=== PATIENT | male | born 1955 | race Caucasian/White ===

== ENCOUNTER → 2017-10-27 03:18 | Outpatient (CLI) | payer OTHER, SELFPAY ==
[2017-10-27 08:03] LABS: Hemoglobin A1C 6.4 % (4.5-6.2)
[2017-10-27 08:17] LABS: Anion Gap 8.7 mmol/L (3-11); BUN 17 mg/dL (7-18); CO2 26.3 mmol/L (21.0-32.0); CREATININE 0.92 mg/dL (0.70-1.30); Calcium 9.2 mg/dL (8.5-10.1); Chloride 106 mmol/L (98-107); Cholesterol 161 mg/dL (50-200); Glucose 117 mg/dL (70-100); HDL Cholesterol 42 mg/dL (40-60); LDL CHOLESTEROL 107 mg/dL (<100); Potassium 4.6 mmol/L (3.5-5.1); Sodium 141 mmol/L (136-145); Triglyceride 87 mg/dL (30-150)
== END ==
PROVIDERS: PCP Emergency Medicine; Visit Provider Emergency Medicine
DX: E11.9 Type 2 diabetes mellitus without complications (principal)
CPT/HCPCS: 36415; 80048; 80061; 83721; 83036

== ENCOUNTER 2018-10-25 11:51 | Outpatient (CLI) | payer OTHER, SELFPAY ==
--- NOTE | 2018-10-25 13:00 | DI.RAD_ITS ---
SYMPTOM/DIAGNOSIS: CHRONIC NECK AND BACK PAIN, M54.2, CERVICALGIA, DORSALGIA, M54.9, G89.29 CERVICAL SPINE: There are small to moderate endplate osteophytes throughout. There is narrowing of the C 3-4 disc space. There are facet degenerative changes. There is no significant neural foraminal narrowing. The alignment appears normal. IMPRESSION: Degenerative changes greatest at C 3-4.
== END 2018-10-25 12:11 ==
PROVIDERS: PCP Emergency Medicine; Visit Provider Emergency Medicine
DX: M54.2 Cervicalgia (principal); M47.812 Spondylosis without myelopathy or radiculopathy, cervical region
CPT/HCPCS: 72050

== ENCOUNTER 2019-11-01 11:03 | Outpatient (CLI) | payer OTHER, SELFPAY ==
--- NOTE | 2019-11-01 10:00 | DI.RAD_ITS ---
EXAM: XR KNEE RT 2V AP,LAT CLINICAL HISTORY: PAIN. TECHNIQUE: 2D digital imaging was performed. COMPARISON: CR KNEES BILAT AP LATERALS from 02/18/2016 CR KNEES BILAT MERCHANT VIEW from 02/17/2017 FINDINGS: BONES: No acute fracture is present. No bony destructive lesion is seen. JOINTS: There is again seen a right total knee replacement. No lucencies are seen in or about the or thopedic hardware. There is a moderate joint effusion. SOFT TISSUE: Vascular calcifications are present. IMPRESSION: 1. Right TKR. 2. Moderate joint effusion. DATA REPOSITORY: RADIATION DOSE DELIVERED:
--- NOTE | 2019-11-01 10:05 | DI.RAD_ITS ---
EXAM: XR SACROILIAC JOINTS CLINICAL HISTORY: rt hip pain. TECHNIQUE: 2D digital imaging was performed. COMPARISON: No exams were available for comparison FINDINGS: The sacroiliac joints are intact. No ankylosis or erosions are seen. The bones are intact and michel lly mineralized. There are mild degenerative changes seen at the hips bilaterally. Degenerative ketan nges are seen in the lower lumbar spine. The soft tissues are unremarkable. IMPRESSION: Mild degenerative changes seen at the hips and lower lumbar spine. DATA REPOSITORY: RADIATION DOSE DELIVERED:
== END 2019-11-01 11:23 ==
PROVIDERS: PCP Emergency Medicine; Referring Provider Emergency Medicine; Visit Provider Orthopaedic Surgery
DX: M16.0 Bilateral primary osteoarthritis of hip (principal); M47.816 Spondylosis without myelopathy or radiculopathy, lumbar region; Z96.651 Presence of right artificial knee joint; M25.461 Effusion, right knee
CPT/HCPCS: 72202; 73560

== ENCOUNTER 2019-12-28 08:08 | Outpatient (CLI) | payer OTHER, SELFPAY ==
[2019-12-29 17:04] LABS: SARS-CoV-2 RNA Not Detected (NotDetected); SARS-CoV-2 RNA Source Nasal/Nares
== END 2019-12-28 08:28 ==
PROVIDERS: PCP Emergency Medicine; Visit Provider Orthopaedic Surgery
DX: Z11.59 Encounter for screening for other viral diseases (principal); Z01.818 Encounter for other preprocedural examination
CPT/HCPCS: U0003

== ENCOUNTER 2020-01-01 09:49 | Inpatient (IN) | payer OTHER, SELFPAY ==
[2020-01-01] VITALS (9 sets, daily range): BP systolic 123–152; BP diastolic 69–101; PULSE 57–84; RESP 14–21; TEMP 36–36.8; O2SAT 94–100
--- NOTE | 2020-01-01 | DI.RAD_ITS ---
EXAM: XR KNEE RT 2V AP,LAT CLINICAL HISTORY: check total knee components in RR. TECHNIQUE: 2D digital imaging was performed. COMPARISON: CR XR KNEE RT 2V AP,LAT from 11/01/2019 FINDINGS: BONES: There are stable post operative changes present. No fracture or dislocation. JOINTS: The joint spaces are well maintained. No joint effusion is present. SOFT TISSUE: Normal. IMPRESSION: Stable postoperative changes. DATA REPOSITORY: RADIATION DOSE DELIVERED:
[2020-01-01] MEDS: Lactated Ringers 1,000 ML 80 ML IV (10:55)
[2020-01-01] MEDS: ceFAZolin 2 GM/50 ML BAG IVPB ×3 (14:01→23:27)
--- NOTE | 2020-01-01 14:30 | SYNOVIUM_PTH ---
PATIENT: Ari Gtz LOC: U#:[id number] AGE/SX: 64/M ROOM: RE01/01/[address]: Sunday Diaz MD : 1955 BED: A DIS: 01/02/2020 SPEC #: [id number] RECD: 01/01/20 16:13 STATUS: SOUJhonny REQ #: [id number] BEHZAD: 01/01/20 14:[address]: Sunday Diaz DEPT: Surgical Specimen RECD BY: Gely Boo ENTERED: 01/01/20 16:13 SP TYPE: SYNOVIUM OTHR DR: Ari Sanchez, DO Mohit Galvez Tissues: 1 - SYNOVIUM/IAL Procedures: GROSS AND MICRO LEVEL 4 Comments: [id number]
[2020-01-01] MEDS: POTASSIUM CHLORIDE/0.9% NACL 1,000 ML 150 MEQ IV (18:43)
[2020-01-01] MEDS: Gabapentin 100 MG CAP PO (19:34)
[2020-01-01] MEDS: Docusate Sodium 100 MG CAP PO (19:34)
[2020-01-01] MEDS: Simvastatin 10 MG TAB PO (19:34)
[2020-01-01] MEDS: oxyCODONE-CR 10 MG TABCR PO (19:35)
[2020-01-01] MEDS: Ketorolac 30 MG/ML VIAL IVP (22:46)
[2020-01-02 03:26] VITALS: BP 132/78; PULSE 83; RESP 18; TEMP 37; O2SAT 96
[2020-01-02] MEDS: Ketorolac 30 MG/ML VIAL IVP ×2 (04:23→09:32)
[2020-01-02] MEDS: Normal Saline Flush 10 ML SYR IV ×2 (04:24→09:32)
[2020-01-02] MEDS: ceFAZolin 2 GM/50 ML BAG IVPB (06:08)
[2020-01-02] MEDS: POTASSIUM CHLORIDE/0.9% NACL 1,000 ML 60 MEQ IV (06:09)
[2020-01-02 07:22] VITALS: BP 131/84; PULSE 63; RESP 17; TEMP 37; O2SAT 94
[2020-01-02] MEDS: Gabapentin 100 MG CAP PO (08:07)
[2020-01-02] MEDS: Multivitamin w/Minerals TAB 1 TAB PO (08:07)
[2020-01-02] MEDS: Docusate Sodium 100 MG CAP PO (08:07)
[2020-01-02] MEDS: Pantoprazole 40 MG TABCR PO (08:07)
[2020-01-02] MEDS: oxyCODONE-CR 10 MG TABCR PO (08:08)
[2020-01-02] MEDS: Lisinopril 10 MG TAB 30 MG PO (08:08)
[2020-01-02] MEDS: Allopurinol 100 MG TAB PO (08:08)
--- NOTE | 2020-01-02 09:10 | PT.INIE ---
Date of service: 01/02/20 Time of Service: 09:10 PT Notes Visit Reasons: R KNEE Physical Therapy Inpatient Initial Evaluation Date: 01/02/2020 Referring Doctor: Sunday Diaz MD PT Orders: PT CONSULT: Status post Ortho surgery Precautions: Fall. Standard. WBAT on right LE. 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 02/13/13 LEFT Social History/Home Situation: Lives with in a private home with 4 steps to enter without rails. Independent with all aspects of ADLs prior to surgery. Equipment Owned/DME: Wooden bilateral axillary crutches Subjective: Denies pain. Just reports surgical pain of 1-2/10 even after ambulation activity. Denies headache, chest, and dizziness throughout session. Objective: General Observation: Greyson wraps on right LE. LE. Knee immobilizer on right LE. TEDS on left leg. Mental Status: Alert and oriented x4 Pain: 1?2/10 in the right knee with ambulation activity ROM: Right Upper Extremity: Shoulder Flexion WFL. Shoulder abduction WFL. Elbow flexion WFL. Wrist flexion WFL. Opening and closing of hand WFL. Left Upper Extremity: Shoulder Flexion WFL. Shoulder abduction WFL. Elbow flexion WFL. Wrist flexion WFL. Opening and closing of hand WFL. Right Lower Extremity: Hip flexion WFL. Hip abduction WFL. Knee flexion 30 to 90 degrees. Knee extension -30 degrees ankle dorsiflexion WFL. Ankle plantarflexion WFL. Left Lower Extremity: Hip flexion WFL. Hip abduction WFL. Knee flexion WFL. Ankle dorsiflexion WFL. Ankle plantarflexion WFL. Strength: Right Upper Extremity: Shoulder flexors 5/5. Shoulder abductors 5/5. Elbow flexors 5/5. Elbow extensors 5/5. [employer] strong. Left Upper Extremity: Shoulder flexors 5/5. Shoulder abductors 5/5. Elbow flexors 5/5. Elbow extensors 5/5. [employer] Maker strong. Right Lower Extremity: Hip flexors 5/5. Hip abductors 5/5. Knee flexors 3-/5. Knee extensors 3 - /5. Ankle dorsiflexors 5/5. Ankle plantarflexors 5/5. Left Lower Extremity:Hip flexors 5/5. Hip abductors 5/5. Knee flexors 5/5. Knee extensors 5/5. Ankle dorsiflexors 5/5. Ankle plantarflexors 5/5. Sensation: Intact as to pain and pressure on bilateral lower extremities. Bed Mobility/Transfers: Rolling independent Supine to sit independent Sit to supine independent Sit to stand supervision Stand to sit supervision Bed to chair supervision Chair to bed supervision Gait: Using the 4 wheeled walker tolerated 250 feet of level is ambulation requiring only supervision. Using the bilateral axillary crutches, 300 feet of level surface ambulation requiring only supervision. Completed up-and-down 6 x 4 inch steps and 4 x 6 inch steps using bilateral axillary crutches requiring standby assist only. Only reported surgical pain of 1?2/10 in the right knee. Balance: Static Sitting: Normal Dynamic Sitting: Normal Static Standing: Good Dynamic Standing: Fair Special Tests: Mobility Limitations Standardized Measure [facility] 6 clicks Basic Mobility Inpatient Short Form: Raw Score: 24 CMS Score: 0% deficit Informed Consent/Education: Patient instructed in purpose of PT consult and plan of care. Assessment: Demonstrates the need for the use of bilateral axillary crutches to maximize independence and and reduce fall risk at home. He may benefit from continued assessment by outpatient PT regarding right foot rehabilitation or evaluation for the need of a right foot orthosis to maximize safety of community ambulation. Patient presents with clinical signs and symptoms consistent with current/admitting diagnoses that have resulted to mobility limitations, gait instability, generalized weakness, and impairment of motor control as demonstrated by the following impairment level findings: 1. Decreased strength to right knee major muscle groups 2. Impaired sitting/standing balance 3. Limitation of joint range of motion in right knee Impairments are contributing to the following functional limitations: 1. Inability to safely ambulate without assistive device 2. Increase completion time for mobility ADL performance Patient is assessed as a moderate complexity based on the following: History: 64 [id number] with impairment level findings, functional limitations, and past medical history as indicated above Examination: Demonstrable impairment in strength, balance, and mobility level with underlying impairments and functional limitations as documented above Presentation: Stable Decision Makin moderate complexity Goals: N/A. PT eval and 1 treatment session only. Plan of Care/Treatment Plan: N/A. PT eval and 1 treatment session only. DISCHARGE RECOMMENDATIONS: Home when medically cleared by orthopedic surgeon. May resume outpatient PT services in order to assess need for continued right foot rehabilitation or assessment for the need for right foot orthosis for maximized gait performance in the community. TREATMENT CODE/TIME: 81341 x 25 minutes, 05156 x 10 minutes beginning at 9:10 AM. Thank you for the opportunity to participate in the care of this patient. Carolina Cabrera PT, DPT, CLT [facility] [place], [place]
[2020-01-02 11:30] VITALS: BP 112/73; PULSE 76; RESP 18; TEMP 37; O2SAT 95
[2020-01-02 11:43] VITALS: BP 114/75; PULSE 80; RESP 17; TEMP 36.7; O2SAT 93
--- NOTE | 2020-01-02 12:54 | PDOC.CMIN ---
- If Service Date Differs Date of service: 01/02/20 Time of Service: 12:55 Care Management Initial Assess REASON FOR HOSPITALIZATION:: R knee revision PAST MEDICAL HISTORY/PAST SURGICAL HISTORY:: Medical History. Carpal tunnel syndrome of right wrist. DJD (degenerative joint disease). hands. DJD (degenerative joint disease) of knee. Hyperlipidemia. mild. Hypertension. Hyperuricemia. rare gout. IBS (irritable bowel syndrome). Kidney stones. 1991. Obesity. Surgical History. Arthroplasty of knee. B/L. Colonoscopy - IV Sedation (09/17/15). Dr Rangel, tubular adenoma, repeat 5 yrs. Extraction of cataract. 02/06/14; RIGHT EYE. 02/13; LEFT EYE. Replacement of total knee joint (02/13/13). 05/1998 ? 02/13/13 LEFT PREVIOUS FUNCTIONAL STATUS/SOCIAL/FAMILY SUPPORTS:: Ari lives in [place] with his , Eloina. 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 He is independent at baseline. CURRENT FUNCTIONAL STATUS:: Ari was sitting up in his chair when CM met with him. He reported that he is feeling great, and was able to work well with PT today. He stated that he is waiting for the MD to discharge him home. He did not have any questions or concerns regarding his discharge plan. CM will continue to follow. ADVANCE DIRECTIVES:: None on file. Has patient been provided with info about the portal/API?: Yes Did the patient sign up for the portal?: No CODE STATUS:: Full Code INSURANCE COVERAGE / FINANCIAL ISSUES:: [facility]/ Health Plans CURRENT HOME/COMMUNITY SERVICES/EQUIPMENT:: No current services in the community. Ari has crutches, which PT has cleared him to use post surgically. PRIMARY CARE PHYSICIAN:: Ari Sanchez POTENTIAL DISCHARGE NEEDS:: Evaluations for further needs, follow up appointments. PATIENT/FAMILY EDUCATION NEEDS:: Review discharge instructions regarding activity levels and medications, discussion of self care needs including ask me three. ANTICIPATED BARRIERS TO DISCHARGE:: None identified at this time. TRANSPORTATION:: via private vehicle driven by family. PLAN:: Anticipate Ari will return home when medically cleared with no services. He will be driven home via private vehicle by his . He will follow up with Ortho and his discharge plan of care. CM will continue to follow.
--- NOTE | 2020-01-02 13:04 | W.PM.DS.N ---
Date of service: 01/02/20 Time of Service: 13:04 DS: Diagnosis Discharge Diagnosis (1) Aseptic loosening of prosthetic knee: Status: Acute Discharge Plan Disposition Patient Disposition: HOME Condition: Good Discharge Details Reason For Visit: Exchange failed polyethylene insert R total knee Admit Date/Time: 01/01/20 09:49 Admit Provider: Sunday Diaz Attending Provider: Sunday Diaz Primary Care Provider: Ari Sanchez Hospital Course Hospital Course: Patient was taken to the operating room on day of admission 01/01/2020. He received a femoral nerve block using Exparel. He then had a a general anesthetic. The right knee was explored and he in fact had a failed polyethylene insert. The femoral tibial and patellar components were not loose. The patient did have an extensive synovial reaction to the polyethylene debris. Complete synovectomy was performed and a new polyethylene insert 10 mm thick was locked solidly into the tibial tray. Patient was admitted for pain control overnight. On 01/02/20, the day after the surgery he was having minimal discomfort. He was fully independent with transfers and ambulation on crutches. Physical therapy thought he was safe for home discharge. I also felt he was ready for home discharge, having completed all acute care goals. Home Meds and New Rx's Prescriptions: New ibuprofen 800 mg tablet 800 mg PO TID Qty: 30 RF: 1 hydrocodone-acetaminophen 5-325 mg tablet 1 tab PO Q6H PRN (Reason: pain) Qty: 14 RF: 0 Discontinued meloxicam [Mobic] 15 mg tablet 15 mg PO QAM Qty: 30 RF: 3 ibuprofen [Motrin IB] 200 MG tablet 400 mg PO Q6H PRN RF: 0 clindamycin HCl 300 mg capsule 300 mg PO 2 tabs prn Qty: 10 RF: 1 No Action Cortisporin-TC 3.3-3-10-0.5 mg/mL drops,suspension 4 drp OT TID Qty: 10 RF: 1 allopurinol 100 mg tablet 100 mg PO DAILY Qty: 90 RF: 4 sildenafil [Viagra] 100 MG tablet 50 - 100 mg PO PRN MDD 100 Qty: 5 RF: 10 triamcinolone acetonide 15 GM cream 15 gm Topical BID Qty: 1 RF: 0 Shingrix (PF) 50 mcg/0.5 mL suspension for reconstitution 0.5 ml IM ONCE Qty: 1 RF: 1 lisinopril 30 mg tablet 30 mg PO DAILY Qty: 90 RF: 3 simvastatin 10 mg tablet 10 mg PO QPM Qty: 90 RF: 3 Discharge Instructions Additional Instructions: Crutches to walk. Continue use as long as you limp. May put as much weight on right leg as your discomfort allows. Elevate right leg when sitting. May discontinue knee immobilizer splint when you can lift your straight leg off the bed with the splint off. May remove outside dressing shower and get the bottom dressings wet on . Do not attempt to remove the bottom dressing, just let them fall off by itself. Walk every day is much as discomfort allows. Perform range of motion exercises to the right knee several times a day at home. Apply the Cryo/Cuff to your right knee 4 times a day for an hour each time to help decrease swelling. Follow-up with Dr. Diaz in 2 weeks. Take ibuprofen 800 milligrams p.o. 3 times a day as prescribed to help decrease swelling and inflammation. Take hydrocodone every 6 hours if needed, for breakthrough pain. Referrals: Sunday Diaz MD [ [facility] ST[facility]FF PHYSICIAN] - (f/u in 2 weeks) Activity:: Activity as Tolerated Equipment/Supplies:: No Equipment Needed Diet:: As Tolerated Discharge Orders Discharge Orders: Discharge Order (Routine); Ordered 01/02/20 Ordered By: Sunday Diaz DS: Summary Status at Discharge Functional status at discharge: uses cane/walker Overall status at discharge: patient is not back to baseline Mental Status: mental status grossly normal Speech and Movement: speech and movement normal Mood: congruent mood Affect: normal affect Exam Psych Mental Status: mental status grossly normal Speech and Movement: speech and movement normal Mood: congruent mood Affect: normal affect DS: Data Vitals/I&O Vitals and I&O: Vital Signs Temperature 36.7 C 01/02/20 11:43 Temperature Source Temporal Artery Scan 01/02/20 11:43 Pulse 80 01/02/20 11:43 Pulse Rhythm Regular 01/02/20 10:00 Respiratory Rate 17 01/02/20 11:43 Respiratory Effort Non-Labored 01/02/20 10:00 Respiratory Depth Normal 01/02/20 10:00 Respiratory Pattern Normal 01/02/20 10:00 Blood Pressure 114/75 01/02/20 11:43 Pulse Oximetry 93 01/02/20 11:43 Respiratory End-tidal CO2 31 01/01/20 16:43 Oxygen Delivery Method Room Air 01/02/20 11:43 Oxygen Flow Rate 0 01/02/20 11:43 Pain Level 7 01/02/20 11:43 Comment 01/01/20 17:16 Intake & Output 01/01/20 01/02/20 01/02/20 23:59 11:59 23:59 Intake Total 1062.5 / 1112.5 985 / 985 Output Total 800 / 800 300 / 300 Balance 262.5 / 312.5 685 / 685 Intake: IV 1062.5 / 1112.5 745 / 745 Oral 240 / 240 Output: Urine 800 / 800 300 / 300 Other: Urine Color Yellow Yellow Urine Appearance Clear Clear Urine Odor Normal None Stool Size Large Stool Characteristics Soft Formed Emesis Description None Voiding Methods Urinal Toilet Data Completed and Pending Labs on day of discharge: 01/01/20 Unknown Knee - Right Joint Anaerobic Culture - Pending Preliminary micro results at discharge 01/01/20 Unknown Surgical Culture - Preliminary Knee - Right Joint 01/01/20 Unknown Anaerobic Culture - Pending Knee - Right Joint [facility] Medical History Carpal tunnel syndrome of right wrist 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 02/13/13 LEFT Family History Mother No problems noted. Father Essential hypertension Heart disease CHF Sister Atrial fibrillation Neoplasm LYMPHOMA Son No problems noted. Daughter No problems noted. Social History Smoking/Tobacco Use Status: Never Smoking risk assessment performed?: Yes Drug use: Never Current gender identity: male
--- NOTE | 2020-01-02 13:49 | PDOC.CMDIS ---
- If Service Date Differs Date of service: 01/02/20 Time of Service: 13:49 LACE Index Scoring Tool - Questions: Length of Stay (in days): 2 Acuity (Admit via E.D.?): No Comorbidities: Diabetes w/o Complication E.D. Visits: 0 - Answers: Total Score: 3 Risk of Readmission: Low Risk Care Management Discharge Reason for Hospitalization: R knee revision Discharge Plan: Ari will return home with no additional services at this time. He will be driven home by his via private vehicle. He will follow up with Ortho and his discharge plan of care. He is happy to be going home. Patient/Family Education Needs: Review discharge instructions regarding activity levels and medications, discussion of self care needs including ask me three.
--- NOTE | 2020-01-04 10:53 | W.PM.OP ---
Date of service: 01/01/20 Time of Service: 13:53 Operative Note Operative Note DATE OF PROCEDURE: 01/01/20 POST-OP DIAGNOSIS: other Catastrophic failure of polyethylene insert. No loosening of the femoral, tibial, or patellar components was identified. Foreign body synovitis right knee PROCEDURE: Exchange of failed polyethylene insert right total knee. Complete synovectomy right knee. SURGEON: Sunday Diaz ASSISTING SURGEON: Nyla Bateman ANESTHESIA: spinal PATHOLOGY: other (Specimen of abnormal synovium) TOURNIQUET TIME: 140 COMPLICATIONS: None Patient was transported to: PACU Patient's condition: stable Implants: The failed polyethylene insert was determined to be 8 mm thick. It was replaced with a 10 mm thick posterior cruciate substituting polyethylene insert. Indications: This is a 64-year-old white male who had undergone a right total knee replacement in 1998 at [facility]. He had done well until approximately 2 years prior to admission. At that time patient began experiencing vague discomfort in the knee associated with swelling. The patient was noted at that time to have visible thinning of the medial side of the tibial insert of his right total knee. Over the last 6 months his discomfort has started to limit his activities. Swelling in his knee has not subsided. Aspiration of his knee failed to show any sign of sepsis. Serial x-rays showed what appeared to be catastrophic failure of the medial polyethylene insert. I could not see any obvious loosening of his total knee components however. Exchange of the polyethylene insert was advised to alleviate his symptoms. I also informed the patient that at the time of surgery if any component was felt to be loose then it would be revised. He agreed with my treatment plan. Findings: Extensive synovitis due to polyethylene debris. I found that the insert measured only 8 mm thickness, despite an op report from [facility] that said it was a 10 mm thick insert. Femoral-tibial and patella components were well fixed. Procedure Description: Patient taken the operating room on 01/01/2020, given a spinal anesthetic and placed supine operative table. Patient also had received a femoral nerve block with Exparel. Proximal tourniquet was applied to the right thigh and then the right lower extremity was prepped from toes to tourniquet and draped free in the usual sterile fashion. I incised the scar from his lateral parapatellar incision under proximal tourniquet control. Incision was carried down to the knee capsule. A lateral parapatellar capsular incision was made it was extended proximally in the midline of the quadriceps tendon. Patella was mobilized medially. Medial and lateral capsular release from the proximal tibia was performed until I could flex the knee and clearly see the components. The polyethylene insert was removed. There was a fracture of the mid medial edge of the insert and was thinning of the entire medial portion of the insert to within just a couple millimeters thickness. The tibial component was then evaluated. There was no gross motion seen. I then used a tamp and a mallet to gently tap the component and again there was no motion of the component. The femoral component was then evaluated in a similar fashion and was solidly fixed with no loosening. Finally the patella component was evaluated and was solidly fixed. There was extensive foreign body synovitis of his knee from the polyethylene debris. A complete synovectomy was performed removing all abnormal synovium and leaving just healthy tissue. A 10 mm PFC posterior cruciate substituting insert was then opened. It was compared to the failed insert that was retrieved. On direct visualization it was apparent that the failed insert was not 10 mm thick as reported in the op note from [facility]. It looked to be only 8 mm. The new 10 mm insert was then inserted into the tibial tray and locked into place with the impactor and a mallet. Range of motion was checked. The patient was able to come to full extension. No varus or valgus laxity was noted when stressing the knee from 0 to 90 degrees of flexion. The knee was irrigated Betadine and saline solution and a Betadine solution was left in the knee for 60 seconds before suctioning. Wound margins were infiltrated 0.5 some Marcaine with epinephrine solution. The knee was flexed over soft goods and closure was begun. The lateral capsular incision was approximated interrupted [id number] sutures of #1 Vicryl suture material. The quadriceps tendon split was repaired with interrupted [id number] sutures of #1 of oxygen of 0. Subcu was approximated interrupted 2-0 Vicryl sutures skin edges were approximated with a running septic and suture of 3-0 Monocryl supplemented with tissue glue. Incision was dressed with a Mepilex dressing then dressed with ABD pads wrapped with 6 inch Greyson bandages. Tourniquet was released at this point there was no breakthrough bleeding to the dressings. Knee immobilizer splint was placed on the right side to keep his knee is extension. Patient was discharged to recovery room in good condition. He experienced no intraoperative complications.
== END 2020-01-02 14:15 | disposition home or self-care (01) | DRG 489 ==
LOC: PDS 09:49 → MS 01-02 13:06
PROVIDERS: Admitting Provider Orthopaedic Surgery; PCP Emergency Medicine; Visit Provider Orthopaedic Surgery
PROC: 0SPC09Z Removal of Liner from Right Knee Joint, Open Approach (ICD-10-PCS; CPT 27487; principal; 2020-01-01 13:30)
DX: T84.032A Mechanical loosening of internal right knee prosthetic joint, initial encounter (principal); I10 Essential (primary) hypertension
CPT/HCPCS: 27486; 76942; 88305; 97162; 97530; NC; 73560; 87070; 87075; 87205; J0131; J0690; J1100; J1885; J2001; J2405; L1830

== ENCOUNTER 2020-10-30 01:52 | Outpatient (CLI) | payer MEDICARE, OTHER, SELFPAY ==
--- NOTE | 2020-10-30 06:45 | DI.US_ITS ---
Exam(s) US RENAL EXAM: US RENAL CLINICAL HISTORY: rt flank pain for 3 weeks,R10.9. TECHNIQUE: Bhandari scale, color and spectral Doppler were used. COMPARISON: No exams were available for comparison FINDINGS: Renal size in cm: Right: 13.5. Left: 13.2. Echogenicity: Normal. Hydronephrosis: No. Cyst or mass: 0.8 x 1.5 x 1.3 cm simple cyst. No follow-up is recommended. Nephrolithiasis: No. Other findings: None. Bladder:Normal. Ureteral jets: Right: Visualized and unremarkable. Left: Visualized and unremarkable. Prevoid vol:514 cc Postvoid vol:57 cc Prostate: 105 cc Renal color flow: Symmetric and within normal limits. IMPRESSION: 1. No evidence of nephrolithiasis or hydronephrosis. 2. Enlarged prostate gland. Moderate postvoid urinary bladder volume. DATA REPOSITORY:
== END 2020-10-30 02:12 ==
PROVIDERS: PCP Emergency Medicine; Visit Provider Family Medicine
DX: R10.9 Unspecified abdominal pain (principal); N40.0 Benign prostatic hyperplasia without lower urinary tract symptoms
CPT/HCPCS: 36415; 76770; 80053; 83036; 84550; 85025

== ENCOUNTER 2020-10-30 03:02 | Outpatient (CLI) | payer MEDICARE, OTHER, SELFPAY ==
[2020-10-30 08:22] LABS: Abs Immature Grans 0.02 10^3/uL (0.0-0.06); Absolute Basophil Count 0.05 10^3/uL (0.0-0.2); Absolute Eosinophil Count 0.18 10^3/uL (0.0-0.7); Absolute Lymphocyte Count 1.23 10^3/uL (1.2-3.4); Absolute Monocyte Count 0.58 10^3/uL (0.1-0.8); Absolute Neutrophil Count 6.53 10^3/uL (1.2-6.7); Basophils % 0.6; Eosinophils % 2.1; HCT 42.7 % (40.0-50.0); HGB 13.9 g/dL (13.5-17.5); Immature Grans % 0.2; Lymphocytes % 14.3; MCH 28.8 pg (27.0-33.0); MCHC 32.6 % (32.0-36.0); MCV 88.4 fL (80-95); MPV 10.4 fL (8.0-11.0); Monocytes % 6.8; Nucleated RBC 0 %; Platelet Count 227 10^3/uL (130-400); RBC 4.83 10^6/uL (4.36-5.78); WBC 8.59 10^3/uL (4.4-10.8)
[2020-10-30 08:46] LABS: Hemoglobin A1C 6.8 % (<5.7)
[2020-10-30 09:52] LABS: ALT 39 U/L (16-63); AST 18 U/L (15-37); Albumin 4.3 g/dL (3.4-5.0); Alkaline Phosphatase 70 U/L (46-116); BUN 18 mg/dL (7-18); Bilirubin, Total 0.6 mg/dL (0.2-1.0); CREATININE 0.9 mg/dL (0.70-1.30); Calcium 9.6 mg/dL (8.5-10.1); Chloride 105 mmol/L (98-107); Glucose 120 mg/dL (74-106); Potassium 4.1 mmol/L (3.5-5.1); Sodium 141 mmol/L (136-145); Total Protein 7.7 g/dL (6.4-8.2); Uric Acid 6.1 mg/dL (3.5-7.2)
== END 2020-10-30 03:03 | disposition home or self-care (01) ==
LOC: LBO 03:02
PROVIDERS: PCP Emergency Medicine; Visit Provider Family Medicine
DX: R10.9 Unspecified abdominal pain (principal); R73.9 Hyperglycemia, unspecified; M10.9 Gout, unspecified
CPT/HCPCS: 36415; 80053; 83036; 84550; 85025

== ENCOUNTER → 2021-07-01 12:17 | Outpatient (BNVA) | payer MEDICARE, OTHER, SELFPAY | PROVIDERS: PCP Family Medicine; Referring Provider Family Medicine; Visit Provider Nurse Practitioner Adult Health | DX: G56.01 Carpal tunnel syndrome, right upper limb (principal) | CPT/HCPCS: 95908; 99203; 99214 ==

== ENCOUNTER → 2021-08-01 08:34 | Outpatient (BNVA) | payer MEDICARE, OTHER, SELFPAY | PROVIDERS: PCP Family Medicine; Referring Provider Nurse Practitioner Adult Health; Visit Provider Student in an Organized Health Care Education/Training Program | DX: G56.00 Carpal tunnel syndrome, unspecified upper limb (principal) | CPT/HCPCS: 99212 ==

== ENCOUNTER 2021-08-05 01:58 | Outpatient (CLI) | payer MEDICARE, OTHER, SELFPAY ==
[2021-08-05 12:48] LABS: Hemoglobin A1C 6.7 % (<5.7)
[2021-08-05 13:02] LABS: Anion Gap 11.3 mmol/L (3-11); BUN 16 mg/dL (7-18); CO2 23.7 mmol/L (21.0-32.0); CREATININE 0.8 mg/dL (0.70-1.30); Calcium 8.9 mg/dL (8.5-10.1); Calculated LDL 97 mg/dL (<100); Chloride 105 mmol/L (98-107); Cholesterol 160 mg/dL (<200); Glucose 130 mg/dL (74-106); HDL Cholesterol 43 mg/dL (40-60); Potassium 4.1 mmol/L (3.5-5.1); Sodium 140 mmol/L (136-145); Triglyceride 101 mg/dL (<150)
[2021-08-05 13:15] LABS: COMMENT (LAB VIEW ONLY) 100.77 mg/dL
[2021-08-05 13:18] LABS: Microalb ug/mg Crea 303.5 ug/mg Cr
[2021-08-05 13:20] LABS: Uric Acid 6.6 mg/dL (3.5-7.2)
[2021-08-05 22:45] LABS: PSA, Screening 1.3 ng/mL (<=4.5)
== END 2021-08-05 01:59 | disposition home or self-care (01) ==
LOC: LOS 01:59
PROVIDERS: Emergency Medicine; PCP Family Medicine; Visit Provider Family Medicine
DX: D12.6 Benign neoplasm of colon, unspecified (principal); E11.9 Type 2 diabetes mellitus without complications; E78.5 Hyperlipidemia, unspecified; G56.00 Carpal tunnel syndrome, unspecified upper limb; I10 Essential (primary) hypertension; M10.9 Gout, unspecified; N40.0 Benign prostatic hyperplasia without lower urinary tract symptoms; Z12.5 Encounter for screening for malignant neoplasm of prostate; E66.9 Obesity, unspecified
CPT/HCPCS: 36415; 80048; 80061; 84153; 82043; 82570; 83036; 84550

== ENCOUNTER 2021-08-13 11:53 | Day surgery (SDC) | payer MEDICARE, OTHER, SELFPAY ==
[2021-08-13 12:22] VITALS: BP 160/102; PULSE 73; RESP 18; TEMP 36.7; O2SAT 98
--- NOTE | 2021-08-13 12:23 | W.ANESPRE ---
General Info Date of Service Date Performed: 08/13/21 Height: 5 ft 9 in Weight: 102.058 kg Body Mass Index (BMI): 33.2 Surgical Procedure: Operation Date: 08/13/21 14:10 Proposed Procedure Side Surgeon p Wrist ECTR Right Yuan Martínez MD Meds Allergies and Home Medications Allergies Allergy/AdvReac Type Severity Reaction Status Date / Time Penicillins Allergy Intermediate Hives Verified 08/13/21 12:21 Home Medication Medication Instructions Recorded sildenafil 100 mg tablet (Viagra) 50 - 100 mg PO PRN #5 tabs 10/30/16 ibuprofen 800 mg tablet 800 mg PO TID #30 tabs 01/02/20 allopurinol 100 mg tablet 100 mg PO DAILY #90 tab-caps 07/09/20 clindamycin HCl 300 mg capsule 600 mg PO ONCE PRN dental 07/31/20 prophylaxis #10 caps lisinopril 30 mg tablet 30 mg PO DAILY #90 tabs 03/27/21 simvastatin 10 mg tablet 10 mg PO QPM #90 tabs 03/27/21 acetaminophen 500 mg capsule 1,000 mg PO Q8H PRN PRN #30 caps 08/13/21 hydrocodone 5 mg-acetaminophen 325 1 tab PO Q6H PRN #5 tabs 08/13/21 mg tablet ibuprofen 600 mg tablet 600 mg PO TID #30 tabs 08/13/21 Current Visit Medications: Current Medications Generic Name Dose Route Start Last Admin Trade Name Freq PRN Reason Stop Dose Admin Ringer's Solution 1,000 mls @ 80 mls/hr 08/13/21 06:00 IV 09/11/21 23:59 INFUSION CHAPINCITO Cefazolin Sodium/Dextrose 2 gm in 50 mls @ 100 mls/hr 08/13/21 06:00 Ancef Duplex IVPB 08/13/21 16:00 PREOP CHAPINCITO IV Miscellaneous Supplies 1 each 08/13/21 06:00 Iv Access IV 09/11/21 23:59 DIRECTED CHAPINCITO Sodium Chloride 0 ml 08/13/21 06:00 Normal Saline Flush 10 Ml Syr IV 09/11/21 23:59 PRN PRN Sodium Chloride 0 ml 08/13/21 06:00 Normal Saline 10 Ml Vial IJ 09/11/21 23:59 DIRECTED PRN Sterile Water 0 ml 08/13/21 06:00 Water,Injection,Sterile 10 Ml Vial IJ 09/11/21 23:59 DIRECTED PRN PFS Active Problems Active Problems: Problem Status Onset Code 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, 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 Carpal tunnel syndrome G56.00 Essential hypertension 05/04/13 I10 Generalized osteoarthrosis M15.9 Gout M10.9 Hyperlipidemia E78.5 Kidney stone N20.0 Left sided sciatica 10/20/16 M54.32 Tubular adenoma of colon 10/20/16 D12.6 Gout M10.9 Obesity E66.9 Hypertension I10 Medical History Medical History Carpal tunnel syndrome of right wrist DJD (degenerative joint disease) hands DJD (degenerative joint disease) of knee Hyperlipidemia mild Hypertension Hyperuricemia rare gout IBS (irritable bowel syndrome) Kidney stones 1991 Obesity Surgical History Surgical History Arthroplasty of knee B/L Colonoscopy - IV Sedation (09/17/15) Dr Rangel, tubular adenoma, repeat 5 yrs Extraction of cataract 02/06/14; RIGHT EYE 02/13; LEFT EYE Replacement of total knee joint (02/13/13) 05/1998 ? 02/13/13 LEFT Tobacco Smoking/Tobacco Use Status: Never Alcohol Alcohol Intake: current Alcohol intake frequency: a few times a week Substance Use Substance use: Never Substance use type: does not use Vital Signs and Lab Results Vital Signs Most Recent Vital Signs in EMR: Temp Pulse Resp BP Pulse Ox 36.7 C 73 18 160/102 H 98 08/13/21 12:22 08/13/21 12:22 08/13/21 12:22 08/13/21 12:22 08/13/21 12:22 Lab Results Blood Type / Crossmatch: No Data to Display Complete Blood Count: No Data to Display Complete Metabolic Panel: Sodium Level 140 mmol/L (136-145) 08/05/21 08:20 Potassium Level 4.1 mmol/L (3.5-5.1) 08/05/21 08:20 Chloride Level 105 mmol/L (98-107) 08/05/21 08:20 Carbon Dioxide Level 23.7 mmol/L (21.0-32.0) 08/05/21 08:20 Blood Urea Nitrogen 16 mg/dL (7-18) 08/05/21 08:20 Creatinine 0.8 mg/dL (0.70-1.30) 08/05/21 08:20 Estimated GFR/1.73 m2 >= 60.00 (mL/min/1.73m2) 08/05/21 08:20 Calcium Level 8.9 mg/dL (8.5-10.1) 08/05/21 08:20 Glucose Level 130 mg/dL (74-106) H 08/05/21 08:20 Hemoglobin A1c 6.7 % (<5.7) H 08/05/21 08:20 Liver Function Panel: No Data to Display Coagulation Panel: No Data to Display Cardiac Panel: No Data to Display Arterial Blood Gas: No Data to Display Venous Blood Gas: No Data to Display Pancreas Panel: No Data to Display Thyroid Panel: No Data to Display Infectious Disease: No Data to Display Blood Cultures: No Data to Display Toxicology Panel: No Data to Display Anesthesia Assessment and Plan Anesthesia History Personal History: No History of Anesthesia Complications Family History: No Family History of Anesthesia Complications Exercise Tolerance Exercise Tolerance: Metabolic Equivalents>4 Pertinent Negatives Pertinent Negatives: No Symptoms of GERD Cardiac & Pulmonary Exam Cardiac Exam: Normal S1/S2 Heart Sounds Pulmonary Exam: Clear Bilateral Breath Sounds Implantable Cardiac Device Does patient have a Pacemaker or an ICD?: No Airway Exam Known Difficult Airway: No Mallampati Class: 2 Mouth Opening: Normal (> 3cm) Thyromental Distance: Greater than 3 cm Neck Range of Motion: Full ROM Neck Circumference: Normal Teeth Condition: Normal Dentition ASA Classification ASA Score: ASA 2 Emergency Case?: No NPO Status NPO Status: NPO Clears >2 hours, Solids >8 hours Anesthesia Plan Resuscitation Status: Full Code Anesthesia Technique: General Anesthesia Airway Planned: Natural Airway Monitors Used: Standard Monitors
[2021-08-13] MEDS: Lactated Ringers 1,000 ML 80 ML IV (12:31)
[2021-08-13 12:32] VITALS: BMI 33.2
--- NOTE | 2021-08-13 12:35 | W.PM.DSUDISC ---
Discharge Plan Disposition Patient Disposition: HOME Condition: Stable Discharge Details Reason For Visit: Right ECTR Attending Provider: Yuan Martínez Primary Care Provider: Brody Camara Home Meds and New Rx's Prescriptions: New acetaminophen 500 mg capsule 1,000 mg PO Q8H PRN PRNQty: 30 0RF hydrocodone-acetaminophen 5-325 mg tablet 1 tab PO Q6H PRNQty: 5 0RF ibuprofen 600 mg tablet 600 mg PO TID Qty: 30 0RF Continued sildenafil [Viagra] 100 MG tablet 50 - 100 mg PO PRN MDD 100 Qty: 5 allopurinol 100 mg tablet 100 mg PO DAILY Qty: 90 4RF clindamycin HCl 300 mg capsule 600 mg PO ONCE PRN (Reason: dental prophylaxis) Qty: 10 1RF Rx Instructions: take 2 tabs one hour prior to dental work simvastatin 10 mg tablet 10 mg PO QPM Qty: 90 3RF lisinopril 30 mg tablet 30 mg PO DAILY Qty: 90 3RF ibuprofen 800 mg tablet 800 mg PO TID Qty: 30 1RF Discharge Instructions Stand Alone Forms: Mauricio Aguilar Tunnel Release Referrals: Yuan Martínez MD [ [facility] STAFF PHYSICIAN] - Activity:: Activity as Tolerated Remove Dressings/Wound Care:: 72 hours Shower/Bathe:: 72 hours Diet:: As Tolerated Discharge Orders Discharge Orders: Discharge Order (Routine); Ordered 08/13/21 Ordered By: Nyla Bateman DS: Diagnosis Discharge Diagnosis (1) Carpal tunnel syndrome of right wrist:
[2021-08-13] MEDS: ceFAZolin 2 GM/50 ML BAG IVPB (12:40)
[2021-08-13] MEDS: Lidocaine 1% Multi-Dose W/EPI 1/100,000 50 ML VIAL (12:52)
[2021-08-13] MEDS: Sodium Bicarbonate 50 MEQ/50 ML VIAL (12:52)
[2021-08-13 12:58] VITALS: BP 129/87; PULSE 95; RESP 18; TEMP 36.4; O2SAT 93
--- NOTE | 2021-08-13 13:14 | W.ANESPOSTOP ---
Postoperative Evaluation Date, Time and Location Date Performed: 08/13/21 Time Performed: 13:15 Patient Location: Day Surgery Unit Vital Signs Most Recent Imported Vital Signs: Most Recent Vital Signs Temp Pulse Resp BP Pulse Ox 36.4 C L 95 H 18 129/87 93 08/13/21 12:58 08/13/21 12:58 08/13/21 12:58 08/13/21 12:58 08/13/21 12:58 Pain Score Most Recent Pain Score: Most Recent Pain Score Pain Level 0 08/13/21 12:22 Assessment Mental Status: Awake (Alert & Oriented to Patient Baseline) Airway and Respiratory Function: Patent airway with normal (patient baseline) respiratory exam Cardiovascular Function: Hemodynamically Stable Hydration Status: Adequately Hydrated Nausea & Vomiting: No Nausea or Vomiting Pain: Pt. Denies Any Pain Peripheral Nerve Block: Patient did not receive a nerve block
--- NOTE | 2021-08-13 13:26 | W.PM.OP ---
Date of service: 08/13/21 Time of Service: 13:05 Operative Note Operative Note DATE OF PROCEDURE: 08/13/21 PRE-OP DIAGNOSIS: Left Carpal Tunnel Syndrome POST-OP DIAGNOSIS: same PROCEDURE: Left Endoscopic Carpal Tunnel Release SURGEON: Yuan Martínez ANESTHESIA TYPE: General:No Airway Refer to Anesthesia Record ESTIMATED BLOOD LOSS: 0 PATHOLOGY: none sent TOURNIQUET TIME: 5 COMPLICATIONS: None Patient was transported to: same day Patient's condition: stable Indications: I have seen Ari in clinic for symptoms of carpal tunnel syndrome. The numbness, tingling, and pain limited function. Clinical exam findings with nerve conduction tests confirmed the diagnosis of carpal tunnel syndrome. Nonoperative measures such as bracing, time, activity modifications had been tried but disability and pain persisted. I discussed carpal tunnel release with the patient. I reviewed the risks of the procedure to include, but not limited to, bleeding, infection, pain, stiffness, incomplete release, damage to nerves or vessels, persistent numbness, recurrence. Despite these risks, the patient elected to proceed. Findings: There was tightened carpal tunnel. This was dilated and released successfully with the endoscopic with increased space within the tunnel. The antebrachial fascia was released proximally freeing the median nerve at the wrist. Procedure Description: Ari was greeted in the preoperative holding area where the correct side was identified and marked. The consent was reviewed with the patient and signed. The history and physical was updated. All questions were answered. He was taken back to the operating room. The patient was placed into the supine position on the operating room table with the left arm on an arm board. A nonsterile tourniquet was placed high onto the arm. All bony prominences were well padded. Prophylactic antibiotics in the form of Cefazolin were administered. The left arm was then prepped with Chloraprep and draped in a standard fashion with stockinette and extremity drape. A timeout to confirm correct identity, side and site, procedure, allergies, anesthesia, and medical concerns was performed. The surgical site was marked in the volar wrist creases in line with the radial border of the fourth ray. This area was anesthetized with approximately 6cc of 1% Lidocaine. The limb was then exsanguinated with an Esmarch. The skin was incised with a 15 blade, approximately 1cm. The skin only was cut and the deeper tissue was dissected bluntly with a tenotomy scissor, avoiding passing nerve and venous structures. The fascia was penetrated and opened bluntly. A two-prong skin hook was placed under this proximal fascial edge. A series of hamate finders were used to identify and dilate the carpal tunnel. Synovial elevator was used to free synovial attachments to the underside of the transverse carpal ligament. My thumb was kept in the palm to shante the distal extent of the carpal tunnel and correctly position the hand. The Microaire endoscope was inserted without difficulty and without resistance. Excellent visualization showed horizontally running fibers of the transverse carpal ligament (TCL). The distal extent of the TCL was visualized and the end of the scope palpated with the thumb. The blade was elevated and withdrawn from distal to proximal. The TCL was split into two flaps. The endoscope was reinserted to confirm complete release and any remnant ligament was incised. The scope was withdrawn and the proximal aspect of the carpal tunnel was grossly inspected and appeared release with the median nerve visible. The antebrachial fascia at the level of the wrist was then freed from the overlying skin and then the underlying median nerve with blunt dissection. This was transected longitudinally for about 3cm proximal to the wrist incision. The wound was then irrigated with easy flow of irrigant distally and proximally. The incision was closed with a single 4-0 Nylon suture. The wound was dressed with Xeroform, Gauze, Kerlix and Greyson. The tourniquet was deflated with the initial dressing and held with some pressure. Blood flow returned easily to all digits with capillary refill less than 2 seconds. The patient tolerated the procedure well and was returned to the Same Day Surgery area in a stable condition suffering no known complication.
[2021-08-13 13:29] VITALS: BP 131/96; PULSE 77; RESP 19; TEMP 36.6; O2SAT 98
== END 2021-08-13 13:47 | disposition home or self-care (01) ==
PROVIDERS: PCP Family Medicine; Visit Provider Student in an Organized Health Care Education/Training Program
PROC: 01N54ZZ Release Median Nerve, Percutaneous Endoscopic Approach (ICD-10-PCS; CPT 29848; principal; 2021-08-13 14:00)
DX: G56.01 Carpal tunnel syndrome, right upper limb (principal); E78.5 Hyperlipidemia, unspecified; I10 Essential (primary) hypertension; E11.21 Type 2 diabetes mellitus with diabetic nephropathy
CPT/HCPCS: 29848; J0690; J1885; J2405

== ENCOUNTER → 2021-08-21 07:59 | Outpatient (BNVA) | payer MEDICARE, OTHER, SELFPAY | PROVIDERS: PCP Family Medicine; Referring Provider Family Medicine; Visit Provider Physician Assistant Surgical | DX: G56.01 Carpal tunnel syndrome, right upper limb (principal) ==

== ENCOUNTER → 2021-12-18 09:18 | Outpatient (BNVA) | payer MEDICARE, OTHER, SELFPAY | PROVIDERS: PCP Family Medicine; Referring Provider Family Medicine; Visit Provider Surgery | DX: Z12.11 Encounter for screening for malignant neoplasm of colon (principal); D12.6 Benign neoplasm of colon, unspecified; E11.21 Type 2 diabetes mellitus with diabetic nephropathy; I10 Essential (primary) hypertension; E66.9 Obesity, unspecified | CPT/HCPCS: 99242 ==

== ENCOUNTER 2021-12-30 07:52 | Day surgery (SDC) | payer MEDICARE, OTHER, SELFPAY ==
--- NOTE | 2021-12-30 06:40 | COLE_ITS ---
Date of service: 12/30/21 Colonoscopy Report Date of procedure: 12/30/21 Pre-op diagnosis general: Colon Cancer Screening/ Hx of polyps Procedure: 1.Colonoscopy Surgeon: Terese Rangel Anesthesia Type: General:No Airway Complications: None Disposition: same day Indications: Pt seen at the request of PCP regarding colon cancer screening. Pt has? had a colon cancer screening before.? His last colonoscopy was in 2016 and he had a tubular adenoma of the rectum.? See above. ? No pain or difficulty with bowel movements.? Denies rectal bleeding.? There is no family history of any colon cancer.? Pt has? had any weight loss (he is trying).? ? Their appetite is good.? No heart, lung, or kidney problems. No heartburn or indigestion. No prior colo- rectal surgery.? No prior prostate. ? No problems with anesthesia in the past. Prep: Miralax/Dulcolax Procedure Description: After informed consent was obtained the patient was taken to the procedure room and placed in a left decubitous position. Monitors were applied and a time out was done. The patients name, date of , procedure, allergies to medications and metal in their body was reviewed. The patient was then sedated. Once sedated and comfortable a rectal exam was done. External exam was normal. Internal exam revealed a normal sphincter tone and no palpable masses. The prostate []. The scope was then introduced and retro-flexed. [] internal hemorrhoids, polyps or masses were identified on retro-flexion. The scope was then advanced to the cecum [] difficulty. The ileocecal vlave and appendiceal orifice were identified. The prep was []. The scope was then slowly retracted over [] minutes back into the rectum. Polyps were removed at []. There was [] diverticulosis noted. The scope was removed and the patient was woken up and taken back to Same day surgery in stable condition. The patient tolerated the procedure well and there were no immediate complications. Follow up: The patient should follow up in [] years unless they develop changes in bowel habits or other new gastrointestinal complaints.
--- NOTE | 2021-12-30 06:42 | W.PM.DSUDISC ---
Date of service: 12/30/21 Discharge Plan Disposition Patient Disposition: HOME Condition: Good Discharge Details Reason For Visit: colonoscopy Attending Provider: Terese Rangel Primary Care Provider: Johnathon Rasmussen Home Meds and New Rx's Prescriptions: No Action sildenafil [Viagra] 100 mg tablet 50 - 100 mg PO PRN MDD 100 Qty: 5 1RF metformin 500 mg tablet 500 mg PO BID Qty: 180 3RF polyethylene glycol 3350 17 gram/dose powder 238 g PO ONCE Qty: 238 0RF Rx Instructions: take per colonoscopy instructions bisacodyl [Dulcolax (bisacodyl)] 5 mg tablet,delayed release (DR/EC) 5 mg PO ONCE Qty: 4 0RF Rx Instructions: take per colonoscopy instructions clindamycin HCl 300 mg capsule 600 mg PO ONCE PRN (Reason: dental prophylaxis) Qty: 10 1RF Rx Instructions: take 2 tabs one hour prior to dental work simvastatin 10 mg tablet 10 mg PO QPM Qty: 90 3RF lisinopril 30 mg tablet 30 mg PO DAILY Qty: 90 3RF acetaminophen 500 mg capsule 1,000 mg PO Q8H PRN PRNQty: 30 0RF ibuprofen 600 mg tablet 600 mg PO TID Qty: 30 0RF Discharge Instructions Additional Instructions: Findings: Follow up: Please call if you develop: fevers >101.5 Nausea or Vomiting Abdominal pain that is not transient Rectal bleeding that is more then a tbsp A hard abdomen and inability to pass gas DAY SURGERY UNIT POST ENDOSCOPY INSTRUCTIONS Instructions for everyone who is given Anesthesia: For your safety, please do the following for the next 24 Hours: a. Do not drive or operate dangerous equipment b. Do not drink alcohol beverages or use any recreational drugs for the first 24 hours or while taking pain medications. The medications in your body may have a reaction that can be dangerous. c. Do not make any important decisions or sign any important papers 1. Generally there are no restrictions on your activity after a day or so has gone by, but you may feel a bit fatigued for a few days. 2. After you arrive home you may have a light meal and return to a normal diet as you can tolerate it without feeling sick to your stomach. 3. After surgery, you may feel pain or discomfort. This should be only transient, but if it persists please contact your doctor. 4. If there are any questions regarding the findings of your procedure, please feel free to contact your doctor. 6. If you are unable to contact your doctor with a problem, contact the hospital at [phone]. 7. Continue all your regular medications unless directed otherwise. I understand the above instructions and have no questions. Signature of Patient or Responsible Adult Escort Date/Time Name of Responsible Adult Escort Signature of Nurse Date/Time Activity:: Activity as Tolerated Diet:: As Tolerated
[2021-12-30 08:28] VITALS: BP 112/82; PULSE 93; RESP 18; TEMP 36.2; O2SAT 97
--- NOTE | 2021-12-30 08:30 | RT.EKG_ITS ---
APPROVED REPORT Exam: Resting ECG Reason for Exam: Preoperative Evaluation, Irregular Heartbeat Patient Location: O HR:95 bpm ECG Measurements Heart Rate 95 AXIS DE [id number] P [id number] QRSd 78 QRS 6 QT 360 T 147 QTc 453 Conclusion Atrial fibrillation...? atrial activity Poor R wave progression Nondiagnostic ST-T abnormalities
[2021-12-30] MEDS: Lactated Ringers 1,000 ML 80 ML IV (08:45)
--- NOTE | 2021-12-30 08:53 | W.ANESPRE ---
General Info Date of Service Date Performed: 12/30/21 Height: 5 ft 8 in Weight: 101.3 kg Body Mass Index (BMI): 33.9 Surgical Procedure: Operation Date: 12/30/21 09:05 Proposed Procedure Side Surgeon p Colonoscopy Terese Rangel MD Meds Allergies and Home Medications Allergies Allergy/AdvReac Type Severity Reaction Status Date / Time Penicillins Allergy Intermediate Hives Verified 12/29/21 10:35 Home Medication Medication Instructions Recorded clindamycin HCl 300 mg capsule 600 mg PO ONCE PRN dental 07/31/20 prophylaxis #10 caps lisinopril 30 mg tablet 30 mg PO DAILY #90 tabs 03/27/21 simvastatin 10 mg tablet 10 mg PO QPM #90 tabs 03/27/21 acetaminophen 500 mg capsule 1,000 mg PO Q8H PRN PRN #30 caps 08/13/21 ibuprofen 600 mg tablet 600 mg PO TID #30 tabs 08/13/21 metformin 500 mg tablet 500 mg PO BID #180 tabs 09/16/21 sildenafil 100 mg tablet (Viagra) 50 - 100 mg PO PRN #5 tabs 09/16/21 bisacodyl 5 mg tablet,delayed 5 mg PO ONCE colonscopy bowel prep 12/18/21 release (Dulcolax (bisacodyl)) #4 tabs polyethylene glycol 3350 17 238 g PO ONCE colonoscopy prep 12/18/21 gram/dose oral powder #238 grams Current Visit Medications: Current Medications Generic Name Dose Route Start Last Admin Trade Name Freq PRN Reason Stop Dose Admin Hyoscyamine Sulfate 0.125 mg 12/30/21 06:43 Hyoscyamine 0.125 Mg Sl/Oral/Chew SL DIRECTED PRN Ringer's Solution 1,000 mls @ 80 mls/hr 12/30/21 06:00 12/30/21 08:45 IV 12/30/21 23:59 80 mls/hr INFUSION CHAPINCITO Administration IV Miscellaneous Supplies 1 each 12/30/21 06:00 Iv Access IV 12/30/21 23:59 DIRECTED CHAPINCITO Ondansetron HCl 4 mg 12/30/21 06:43 Ondansetron 4 Mg/2 Ml Vial IVP Q4H PRN PRN Nausea / Vomiting Sodium Chloride 0 ml 12/30/21 06:00 Normal Saline Flush 10 Ml Syr IV 12/30/21 23:59 PRN PRN Sodium Chloride 0 ml 12/30/21 06:00 Normal Saline 10 Ml Vial IJ 12/30/21 23:59 DIRECTED PRN Sterile Water 0 ml 12/30/21 06:00 Water,Injection,Sterile 10 Ml Vial IJ 12/30/21 23:59 DIRECTED PRN PFSH Active Problems Active Problems: Problem Status Onset Code Gout M10.9 Obesity E66.9 Hypertension I10 Tubular adenoma of colon 10/20/16 D12.6 Left sided sciatica 10/20/16 M54.32 Kidney stone N20.0 Hyperlipidemia E78.5 Gout M10.9 Generalized osteoarthrosis M15.9 Essential hypertension 05/04/13 I10 Carpal tunnel syndrome G56.00 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, Z96.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 Medical History Medical History (Updated 12/30/21 @ 09:08 by Terese Rangel MD) Carpal tunnel syndrome of right wrist 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 02/13/13 LEFT Tobacco Smoking/Tobacco Use Status: Never Alcohol Alcohol Intake: current Alcohol intake frequency: a few times a week Alcohol type: hard liquor Substance Use Substance use: Never Substance use type: does not use Details: alcohol: t-4, one drink Vital Signs and Lab Results Vital Signs Most Recent Vital Signs in EMR: Most Recent Vital Signs Temp Pulse Resp BP Pulse Ox 36.2 C L 93 H 18 112/82 97 12/30/21 08:28 12/30/21 08:28 12/30/21 08:28 12/30/21 08:28 12/30/21 08:28 Point of Care Results Point of Care Results: Finger Stick Blood Glucose 103 12/30/21 08:15 Lab Results Blood Type / Crossmatch: No Data to Display Complete Blood Count: No Data to Display Complete Metabolic Panel: Hemoglobin A1c 6.6 % (4.5-5.7) H 12/17/21 07:57 Liver Function Panel: No Data to Display Coagulation Panel: No Data to Display Cardiac Panel: No Data to Display Arterial Blood Gas: No Data to Display Venous Blood Gas: No Data to Display Pancreas Panel: No Data to Display Thyroid Panel: No Data to Display Infectious Disease: No Data to Display Blood Cultures: No Data to Display Toxicology Panel: No Data to Display Anesthesia Assessment and Plan Anesthesia History Personal History: No History of Anesthesia Complications Family History: No Family History of Anesthesia Complications Exercise Tolerance Exercise Tolerance: Metabolic Equivalents>4 Pertinent Negatives Pertinent Negatives: No Symptoms of GERD, No Major Pulmonary Symptoms or Complaints and No History of CVA/TIA Cardiac & Pulmonary Exam Cardiac Exam: Other (Irregular heartbeat and pleth on SPO2. EKG ordered as new for patient ) Pulmonary Exam: Clear Bilateral Breath Sounds Implantable Cardiac Device Does patient have a Pacemaker or an ICD?: No Airway Exam Known Difficult Airway: No Mallampati Class: 2 Mouth Opening: Normal (> 3cm) Thyromental Distance: Greater than 3 cm Neck Range of Motion: Full ROM Neck Circumference: Normal Teeth Condition: Normal Dentition ASA Classification ASA Score: ASA 2 Emergency Case?: No NPO Status NPO Status: NPO Clears >2 hours, Solids >8 hours Anesthesia Plan Resuscitation Status: Full Code Anesthesia Technique: General Anesthesia Airway Planned: Natural Airway Monitors Used: Standard Monitors Preoperative Comments:: Cancelled due to new onset AFib per 12-lead EKG. Discussed diagnosis and plan with patient. Patient cancelled and is being referred to PCP and Cardiology by Dr. Rangel.
[2021-12-30 09:12] VITALS: BMI 33.9
--- NOTE | 2021-12-30 09:32 | NUR.NOTE ---
Nursing Note: Anesthesia webexed that pt. had heartrate 78-93 on monitor. Nursing auscultated and heard irregular HR. No history in chart. Ronda Carmona CRNA in to see pt, and inform pt. that EKG would be done. EKG done, showed Afib. Kenneth Bedolla CRNA and Dr. Rangel in to see pt. They explained to pt. that he would need to see cold strip feeder prior to having a colonoscopy. Case cancelled. to send letter to PCP and referral to cardiology. 0915: IV DCd. Pt. changed in BR and left DSU with spouse @ [phone].
== END 2021-12-30 07:53 | disposition home or self-care (01) ==
LOC: SUR 07:52
PROVIDERS: PCP Family Medicine; Visit Provider Surgery
DX: Z12.11 Encounter for screening for malignant neoplasm of colon (principal); I48.91 Unspecified atrial fibrillation; Z53.8 Procedure and treatment not carried out for other reasons
CPT/HCPCS: 93005; 93010

== ENCOUNTER 2022-01-26 08:44 | Outpatient (CLI) | payer MEDICARE, OTHER, SELFPAY ==
--- NOTE | 2022-01-26 08:30 | RT.EKG_ITS ---
APPROVED REPORT Exam: Resting ECG Reason for Exam: afib Patient Location: O HR:86 bpm ECG Measurements Heart Rate 86 AXIS AR [id number] P [id number] QRSd 86 QRS -13 QT 340 T 123 QTc 407 Conclusion Atrial fibrillation...V-rate 68- 94, irreg A-activity Nonspecific T abnormalities, lateral leads...T <-0.10mV, I aVL V5 V6
== END 2022-01-26 08:45 | disposition home or self-care (01) ==
LOC: DI.CARD 08:45
PROVIDERS: PCP Family Medicine; Visit Provider Internal Medicine Cardiovascular Disease
DX: I48.91 Unspecified atrial fibrillation (principal)
CPT/HCPCS: 93010

== ENCOUNTER → 2022-01-26 10:59 | Outpatient (BNVA) | payer MEDICARE, OTHER, SELFPAY | PROVIDERS: PCP Family Medicine; Referring Provider Family Medicine; Visit Provider Internal Medicine Cardiovascular Disease | DX: I48.91 Unspecified atrial fibrillation (principal); I10 Essential (primary) hypertension | CPT/HCPCS: 93005; 99203; 99214 ==

== ENCOUNTER 2022-02-16 01:38 | Outpatient (CLI) | payer MEDICARE, OTHER, SELFPAY ==
--- NOTE | 2022-02-16 13:38 | DI.US_ITS ---
APPROVED REPORT EXAM: Comprehensive 2D, Doppler, and color-flow Echocardiogram Patient Location: Out-Patient Bee Keeper: Corrie Beltre RDCS (AE) Indications: A Fib, HTN Other Information Study Quality: Adequate Conclusion Normal left ventricular wall thickness and chamber size. Ejection fraction is 59%. Wall motion is n ormal Normal right ventricular size and systolic function Both atria are borderline dilated Aortic valve is trileaflet. There is mild to moderate aortic regurgitation Normal mitral valve with mild regurgitation Normal tricuspid valve with trace regurgitation. Estimated right ventricular systolic pressure is 28 mmHg Mildly dilated ascending aorta measuring 3.58 cm Wall motion Left Ventricle The left ventricle is normal size. The left ventricular systolic function is normal. The left ventric ular ejection fraction is within the normal range. There is normal left ventricular wall thickness. T here is normal LV segmental wall motion. There is no ventricular septal defect visualized. LVEF is 59 %. Right Ventricle The right ventricle is normal size. The right ventricular systolic function is normal. The RVSP is 27 .9 mmHg. Atria Left atrium is borderline dilated. Right atrium is borderline dilated. The interatrial septum is int act with no evidence for an atrial septal defect. Aortic Valve The aortic valve is normal in structure. Aortic valve is trileaflet. There is no aortic valvular sten osis. Mild to moderate aortic regurgitation. Mitral Valve The mitral valve is normal in structure. No evidence of mitral valve stenosis. Mild mitral regurgitat ion. Tricuspid Valve The tricuspid valve is normal in structure. There is no tricuspid valve stenosis. Trace tricuspid reg urgitation. Pulmonic Valve The pulmonary valve is normal in structure. There is no pulmonic valvular stenosis. Trace pulmonic re gurgitation. Great Vessels The aortic root is normal in size. The ascending aorta is mildly dilated. Aortic arch is not well vis ualized. IVC is normal in size and collapses >50% with inspiration. Pericardium There is no pericardial effusion. 2D Dimensions IVSD d PLAX 1.14 cm M: 0.6-1.2 LV Vol A2C d MOD 156.4 mL LVPW d PLAX 1.12 cm M: 0.6 - 1.2 LV Vol A4C d MOD 125.4 mL LVID d PLAX 4.88 cm M: 4.2 - 5.8 LA vol/ BSA A2C s A-L 44.3 mL/m2 LVDs 3.15 cm M: 2.5 - 4.0 LA vol/ BSA A4C s A-L 34.3 mL/m2 Ao Root d 3.08 cm M: 3.1 - 3.7 LA Vol/ BSA Biplane s A-L 39.4 mL/m2 RA Area A4C 18.20 cm2 LA Area A4C s MOD 24.24 cm2 RA Vol/ BSA A4C s A-L 21.2 mL/m2 LA Area A2C s MOD 27.27 cm2 Ao Asc Diam d 3.58 cm M: 2.6 - 3.4 LV EF A4C MOD 58.7 % LV EF Teichholz 64.1 % LV EF A2C MOD 60.5 % LVEF (Garibay's) 59.02 % M: 52 - 72 LV EF Biplane MOD 59.0 % LV Volume 102.56 mL M: 62 - 150 SV 82.36 mL LV Volume Index 48.15 mL/m2 M: 34 - 74 SV Index 38.69 mL/m2 LV Vol Biplane MOD 139.5 mL FS 34.95 % M-Mode TAPSE 1.63 cm (M/F) >1.7 LV Diastology MV E' medial 0.084 (>0.07 m/s) E/A Ratio 2.0 LV E/e MED 11.70 (<14) MV E Vmax 0.99 (0.4-1.3 m/s) MV E' lateral 0.130 (>0.1 m/s) MV A Vmax 0.50 (0.4-1.3 m/s) LV E/e LAT 7.60 (<14) MV E/A Ratio 1.84 MV E/E' medial 11.74 MV E/E' lateral 7.64 Aortic Valve LVOT Area 3.35 cm2 AoV Area Vmax 2.28 cm2 LVOT Vmax 0.89 m/s AoV Area/ BSA (Vmax) 1.07 cm2/m2 LVOT Mean Rashid. 0.59 m/s ADELAIDA Mean Rashid. 2.12 cm2 LVOT Peak Grad 3.2 mmHg ADELAIDA Mean Rashid. Index 0.99 cm2/m2 LVOT Mean Grad 1.6 mmHg AR DT 2959 msec LVOT VTI 0.177 m AR PHT 858 msec LVOT Diam s 2.05 cm AoV Vmax 1.31 m/s Velocity Ratio 0.68 AoV Mean Rashid. 0.93 m/s AoV Peak Grad 6.9 mmHg LVOT SV 59.26 mL AoV Mean Grad 3.8 mmHg AoV VTI 0.241 m AoV Area VTI 2.45 cm2 AoV Area/ BSA (VTI) 1.15 cm/m2 Mitral Valve MV DT 157 (160-240 msec) MR Vmax 4.94 m/s MV PHT 46 msec MR VTI 1.584 m MV Area PHT 4.82 cm2 MR Peak Grad 97.5 mmHg MV VTI 0.917 m MR Mean Grad 64.4 mmHg MV VTI Annulus 1.622 m MV Area VTI 2.81 (4.0-6.0 cm2) Pulmonary Valve PV Vmax 1.28 (0.5-1.5 m/s) RVOT Peak Gr. 1.35 mmHg PV Peak Grad 6.6 mmHg RVOT Mean Gr. 0.65 mmHg PV Mean Grad 4.0 mmHg RVOT VTI 0.114 m PV VTI 0.295 m RVOT Vmax 0.58 m/s Tricuspid Valve TR Peak Grad 24.8 mmHg TR Vmax 2.49 m/s RA Pressure 3.00 mmHg RVSP (TR) 27.9 mmHg
== END 2022-02-16 01:58 ==
LOC: DI 01:40
PROVIDERS: PCP Family Medicine; Visit Provider Internal Medicine Cardiovascular Disease
DX: I10 Essential (primary) hypertension (principal); I48.91 Unspecified atrial fibrillation
CPT/HCPCS: 93306

== ENCOUNTER → 2022-03-19 09:22 | Outpatient (BNVA) | payer MEDICARE, OTHER, SELFPAY | PROVIDERS: PCP Family Medicine; Referring Provider Family Medicine; Visit Provider Internal Medicine Cardiovascular Disease | DX: I48.91 Unspecified atrial fibrillation (principal); I10 Essential (primary) hypertension; Z79.01 Long term (current) use of anticoagulants | CPT/HCPCS: 99214 ==

== ENCOUNTER → 2022-05-14 14:48 | Outpatient (BNVA) | payer MEDICARE, SELFPAY | PROVIDERS: PCP Family Medicine; Referring Provider Family Medicine; Visit Provider Physical Therapy Assistant | DX: Z12.11 Encounter for screening for malignant neoplasm of colon (principal); Z86.010 Personal history of colon polyps ==

== ENCOUNTER 2022-05-26 06:57 | Day surgery (SDC) | payer MEDICARE, OTHER, SELFPAY ==
[2022-05-26 07:20] VITALS: BP 128/78; PULSE 95; RESP 18; TEMP 36.4; O2SAT 97
[2022-05-26] MEDS: Lactated Ringers 1,000 ML 80 ML IV (07:29)
--- NOTE | 2022-05-26 07:29 | W.ANESPRE ---
General Info Date of Service Date Performed: 05/26/22 Height: 5 ft 8 in Weight: 101.5 kg Body Mass Index (BMI): 34.0 Surgical Procedure: Operation Date: 05/26/22 08:35 Proposed Procedure Side Surgeon p Myrna Maki MD Meds Allergies and Home Medications Allergies Allergy/AdvReac Type Severity Reaction Status Date / Time Penicillins Allergy Intermediate Hives Verified 05/26/22 07:18 Home Medication Medication Instructions Recorded clindamycin HCl 300 mg capsule 600 mg PO ONCE PRN dental 07/31/20 prophylaxis #10 caps acetaminophen 500 mg capsule 1,000 mg PO Q8H PRN PRN #30 caps 08/13/21 ibuprofen 600 mg tablet 600 mg PO TID #30 tabs 08/13/21 metformin 500 mg tablet 500 mg PO BID #180 tabs 09/16/21 sildenafil 100 mg tablet (Viagra) 50 - 100 mg PO PRN #5 tabs 09/16/21 apixaban 5 mg tablet 5 mg PO BID #180 tabs 01/26/22 lisinopril 20 1 tab PO DAILY #90 tabs 04/22/22 mg-hydrochlorothiazide 12.5 mg tablet simvastatin 10 mg tablet 10 mg PO QPM #90 tabs 04/22/22 bisacodyl 5 mg tablet,delayed 5 mg PO ONCE colonscopy bowel prep 05/14/22 release (Dulcolax (bisacodyl)) #4 tabs polyethylene glycol 3350 17 238 g PO ONCE colonoscopy prep 05/14/22 gram/dose oral powder #238 grams Current Visit Medications: Current Medications Generic Name Dose Route Start Last Admin Trade Name Kokoq PRN Reason Stop Dose Admin Ringer's Solution 1,000 mls @ 80 mls/hr 05/26/22 06:00 IV 06/24/22 23:59 INFUSION CHAPINCITO IV Miscellaneous Supplies 1 each 05/26/22 06:00 Iv Access IV 06/24/22 23:59 DIRECTED CHAPINCITO Sodium Chloride 0 ml 05/26/22 06:00 Normal Saline Flush 10 Ml Syr IV 06/24/22 23:59 PRN PRN Sodium Chloride 0 ml 05/26/22 06:00 Normal Saline 10 Ml Vial IJ 06/24/22 23:59 DIRECTED PRN Sterile Water 0 ml 05/26/22 06:00 Water,Injection,Sterile 10 Ml Vial IJ 06/24/22 23:59 DIRECTED PRN PFSH Active Problems Active Problems: Problem Status Onset Code New onset a-fib I48.91 Gout M10.9 Obesity E66.9 Hypertension I10 Tubular adenoma of colon 10/20/16 D12.6 Left sided sciatica 10/20/16 M54.32 Kidney stone N20.0 Hyperlipidemia E78.5 Gout M10.9 Generalized osteoarthrosis M15.9 Essential hypertension 05/04/13 I10 Carpal tunnel syndrome G56.00 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, 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 02/13/13 LEFT Tobacco Smoking/Tobacco Use Status: Never Second hand exposure: Yes Alcohol Alcohol Intake: current Alcohol intake frequency: a few times a month Alcohol type: hard liquor Substance Use Substance use: Never Substance use type: does not use Vital Signs and Lab Results Vital Signs Most Recent Vital Signs in EMR: Most Recent Vital Signs Temp Pulse Resp BP Pulse Ox 36.4 C L 95 H 18 128/78 97 05/26/22 07:20 05/26/22 07:20 05/26/22 07:20 05/26/22 07:20 05/26/22 07:20 Point of Care Results Point of Care Results: Finger Stick Blood Glucose 153 05/26/22 07:16 Lab Results Blood Type / Crossmatch: No Data to Display Complete Blood Count: No Data to Display Complete Metabolic Panel: No Data to Display Liver Function Panel: No Data to Display Coagulation Panel: No Data to Display Cardiac Panel: No Data to Display Arterial Blood Gas: No Data to Display Venous Blood Gas: No Data to Display Pancreas Panel: No Data to Display Thyroid Panel: No Data to Display Infectious Disease: No Data to Display Blood Cultures: No Data to Display Toxicology Panel: No Data to Display Imaging and Studies Imaging and Studies Study information below may be from another EMR and interpreted by another provider. Please see original notes in EMR for more complete details. EKG Summary: Conclusion Atrial fibrillation...V-rate 68- 94, irreg A-activity Nonspecific T abnormalities, lateral leads...T <-0.10mV, I aVL V5 V6 Echocardiogram Summary: Conclusion Normal left ventricular wall thickness and chamber size. Ejection fraction is 59%. Wall motion is normal Normal right ventricular size and systolic function Both atria are borderline dilated Aortic valve is trileaflet. There is mild to moderate aortic regurgitation Normal mitral valve with mild regurgitation Normal tricuspid valve with trace regurgitation. Estimated right ventricular systolic pressure is 28 mmHg Mildly dilated ascending aorta measuring 3.58 cm Anesthesia Assessment and Plan Anesthesia History Personal History: No History of Anesthesia Complications Family History: No Family History of Anesthesia Complications Exercise Tolerance Exercise Tolerance: Metabolic Equivalents>4 Pertinent Negatives Pertinent Negatives: No Symptoms of GERD Cardiac & Pulmonary Exam Cardiac Exam: Normal S1/S2 Heart Sounds Pulmonary Exam: Clear Bilateral Breath Sounds Implantable Cardiac Device Does patient have a Pacemaker or an ICD?: No Airway Exam Known Difficult Airway: No Mallampati Class: 2 Mouth Opening: Normal (> 3cm) Thyromental Distance: Greater than 3 cm Neck Range of Motion: Full ROM Neck Circumference: Normal Teeth Condition: Normal Dentition ASA Classification ASA Score: ASA 2 Emergency Case?: No NPO Status NPO Status: NPO Clears >2 hours, Solids >8 hours Anesthesia Plan Resuscitation Status: Full Code Anesthesia Technique: General Anesthesia Airway Planned: Natural Airway Monitors Used: Standard Monitors Preoperative Comments:: Recent onset a fib.
[2022-05-26 07:35] VITALS: BMI 34.0
--- NOTE | 2022-05-26 08:05 | W.COLOREPORT ---
Date of service: 05/26/22 Time of Service: 08:30 Colonoscopy Report Procedure Description: Procedures performed: 1. Colonoscopy with snare polypectomy x2 Preoperative diagnosis: Surveillance colonoscopy, pandiverticulosis Postoperative diagnosis: Pandiverticulosis, colon polyps, grade 2 internal hemorrhoids Surgeon: Neema Maki Anesthesia: Jason Indication for procedure: Patient is a 66-year-old man whose last colonoscopy was 7 years ago. He does not have any symptoms. He had a polyp removed on the last colonoscopy which was tubular adenoma. He does not have a family history of colon cancer. Findings: Terminal ileum was normal. A 7-10 mm sessile polyp was removed at the hepatic flexure and another 3-5 mm sessile polyp was removed in the transverse colon. Both were removed with hot snare technique. A few scattered diverticuli are present on the right colon and significant diverticulosis is present in the left colon. Grade 2 internal hemorrhoids. Surveillance/follow-up recommendations: I recommend repeating another colonoscopy in 3-5 years. If sessile serrated or villous histology, in 3 years. If simple tubular adenomas, repeat in 5 years. Complications: None Blood loss: Minimal Specimens:?? YES Quality of Prep:?? Good Procedure in detail: Written consent was obtained from the patient who was in agreement with the risks, benefits and indications of the procedure.? We went to the endoscopy suite and laid the patient in left lateral decubitus position.? Anesthesia was administered which was tolerated well.? A timeout was performed and when we are all in agreement we began the procedure. Digital rectal exam and visual examination was performed and within normal limits.? A well?lubricated colonoscope was advanced without difficulty all the way to the cecum identified by the ileocecal valve, and triangular folds and appendiceal orifice.? It was then slowly withdrawn.?? Retroflexion was performed in the rectum.? The findings/interventions are noted above. The scope was then removed and the patient tolerated the procedure well and was then taken back to the PACU in hemodynamically stable condition.
--- NOTE | 2022-05-26 08:26 | BOWEL_PTH ---
PATIENT: Ari Gtz LOC: [facility] U#:[id number] AGE/SX: 66/M ROOM: RE05/26/[address]: Rufino Maki : 1955 BED: DIS: 05/26/2022 SPEC #: [id number] RECD: 05/26/22 12:48 STATUS: BRENDA RE #: [id number] BEHZAD: 05/26/22 08:[address]: Rufino Maki DEPT: Surgical Specimen RECD BY: Gely Boo ENTERED: 05/26/22 12:48 SP TYPE: Bowel OTHR DR: Johnathon Rasmussen MD Tissues: 1 - BIOPSY BOWEL 2 - BIOPSY BOWEL Procedures: GROSS AND MICRO LEVEL 4 Comments: [id number]
[2022-05-26 08:48] VITALS: BP 100/67; PULSE 79; RESP 18; TEMP 36.2; O2SAT 95
--- NOTE | 2022-05-26 09:01 | W.ANESPOSTOP ---
Postoperative Evaluation Date, Time and Location Date Performed: 05/26/22 Time Performed: 09:01 Patient Location: Day Surgery Unit Vital Signs Most Recent Imported Vital Signs: Most Recent Vital Signs Temp Pulse Resp BP Pulse Ox 36.2 C L 79 18 100/67 95 05/26/22 08:48 05/26/22 08:48 05/26/22 08:48 05/26/22 08:48 05/26/22 08:48 Pain Score Most Recent Pain Score: Most Recent Pain Score Pain Level 0 05/26/22 08:48 Assessment Mental Status: Awake (Alert & Oriented to Patient Baseline) Airway and Respiratory Function: Patent airway with normal (patient baseline) respiratory exam Cardiovascular Function: Hemodynamically Stable Hydration Status: Adequately Hydrated Nausea & Vomiting: No Nausea or Vomiting Pain: Pt. Denies Any Pain Peripheral Nerve Block: Patient did not receive a nerve block
[2022-05-26 09:24] VITALS: BP 105/86; PULSE 75; RESP 18; TEMP 36.2; O2SAT 96
== END 2022-05-26 09:45 | disposition home or self-care (01) ==
PROVIDERS: PCP Family Medicine; Visit Provider Student in an Organized Health Care Education/Training Program
PROC: 0DJD8ZZ Inspection of Lower Intestinal Tract, Via Natural or Artificial Opening Endoscopic (ICD-10-PCS; CPT 45378; principal; 2022-05-26 08:30)
DX: Z12.11 Encounter for screening for malignant neoplasm of colon (principal); K63.5 Polyp of colon; K57.30 Diverticulosis of large intestine without perforation or abscess without bleeding; K64.1 Second degree hemorrhoids
CPT/HCPCS: 45385; 88305

== ENCOUNTER → 2022-09-17 09:27 | Outpatient (BNVA) | payer MEDICARE, OTHER, SELFPAY | PROVIDERS: PCP Family Medicine; Visit Provider Internal Medicine Cardiovascular Disease | DX: Z79.01 Long term (current) use of anticoagulants (principal); I10 Essential (primary) hypertension; I48.91 Unspecified atrial fibrillation | CPT/HCPCS: 99213 ==

== ENCOUNTER 2022-10-06 04:00 | Outpatient (CLI) | payer MEDICARE, OTHER, SELFPAY ==
[2022-10-06 12:13] LABS: CREATININE 1.1 mg/dL (0.70-1.30); Estimated GFR 73.12 (mL/min/1.73m2); HCT 41.9 % (40.0-50.0); HGB 13.8 g/dL (13.5-17.5); MCH 29.6 pg (27.0-33.0); MCHC 32.9 % (32.0-36.0); MCV 90 fL (80-95); MPV 10.8 fL (8.0-11.0); Platelet Count 232 10^3/uL (130-400); Potassium 4.4 mmol/L (3.5-5.1); RBC 4.67 10^6/uL (4.36-5.78); RDW 13.2 % (11.8-14.1); RDW-SD 43.8 fL; WBC 9.35 10^3/uL (4.4-10.8)
[2022-10-06 12:33] LABS: Hemoglobin A1C 6.6 % (<5.7)
== END 2022-10-06 04:01 | disposition home or self-care (01) ==
LOC: LOS 04:00
PROVIDERS: PCP Family Medicine; Visit Provider Family Medicine
DX: I10 Essential (primary) hypertension (principal); E11.51 Type 2 diabetes mellitus with diabetic peripheral angiopathy without gangrene; I70.209 Unspecified atherosclerosis of native arteries of extremities, unspecified extremity; R53.83 Other fatigue
CPT/HCPCS: 36415; 85027; 82565; 83036; 84132

== ENCOUNTER 2022-12-25 10:47 | Outpatient (CLI) | payer MEDICARE, OTHER, SELFPAY ==
--- NOTE | 2022-12-25 10:45 | RT.EKG_ITS ---
APPROVED REPORT Exam: Resting ECG Reason for Exam: chest pain Patient Location: O HR:96 bpm ECG Measurements Heart Rate 96 AXIS PA [id number] P [id number] QRSd 79 QRS -4 QT 308 T 117 QTc 390 Conclusion Atrial fibrillation...V-rate 75-111, irreg A-activity Nonspecific T abnormalities, lateral leads...T <-0.10mV, I aVL V5 V6
== END 2022-12-25 10:48 | disposition home or self-care (01) ==
LOC: DI.CM 10:48
PROVIDERS: PCP Family Medicine; Visit Provider Nurse Practitioner Family
DX: R07.9 Chest pain, unspecified (principal)
CPT/HCPCS: 93010

== ENCOUNTER 2022-12-25 11:16 | Outpatient (CLI) | payer MEDICARE, OTHER, SELFPAY ==
[2022-12-25 12:31] LABS: ALT 50 U/L (16-63); AST 26 U/L (15-37); Albumin 4.5 g/dL (3.4-5.0); Alkaline Phosphatase 55 U/L (46-116); Anion Gap 13.6 mmol/L (3-11); BUN 31 mg/dL (7-18); Bilirubin, Total 0.6 mg/dL (0.2-1.0); CO2 22.4 mmol/L (21.0-32.0); CREATININE 1.4 mg/dL (0.70-1.30); Chloride 104 mmol/L (98-107); Estimated GFR 54.41 (mL/min/1.73m2); Glucose 124 mg/dL (74-106); Potassium 4.4 mmol/L (3.5-5.1); Sodium 140 mmol/L (136-145); Total Protein 8.3 g/dL (6.4-8.2)
== END 2022-12-25 11:17 | disposition home or self-care (01) ==
LOC: LOS 11:16
PROVIDERS: PCP Family Medicine; Referring Provider Nurse Practitioner Family; Visit Provider Nurse Practitioner Family
DX: R07.9 Chest pain, unspecified (principal)
CPT/HCPCS: 36415; 80053

== ENCOUNTER → 2022-12-29 00:52 | Outpatient (CLI) | payer MEDICARE, OTHER, SELFPAY ==
--- NOTE | 2022-12-29 07:45 | DI.NM_ITS ---
APPROVED REPORT Exam: Exercise Treadmill Patient Location: Out-Patient Room/Bed: Stress Nurse: Dana Wayne RN Ordering Provider:JADYNKARLENE ZUNIGAJENNIFER, Contact Number: [phone] BMI: 34.20 Baseline Rhythm: Atrial Fibrillation Indications: Left sided chest pain Medical History Medical History: Obesity, HTN, HLD, afib, T2DM, DJD of bilat knees Cardiac Medications: Apixaban, lisinopril, metformin, nitro, simvastatin, Allergies: Penicillins Cardiac Risk Factors: Family hx, HTN, HLD, Diabetes, obesity Previous Cardiac Procedures: None Pretest Chest Pain Characteristics: 1-2 chest discomfort Exercise History: Physically active Physical Disabilities: None Lung Sounds: Clear to auscultation Heart Sounds: Irregular Stress Test Details Test: Exercise stress testing was performed using a Rachid protocol. Nuclear Acquisition: Rest Tc-99m/Stress Tc-99m 1 day Rest Isotope: Tc-99m Sestamibi. Dose: 11.0 Date: 12/29/2022 Injection Time: 0930 Stress Isotope: Tc-99m Sestamibi. Dose: 36.0 Date: 12/29/2022 Injection Time: 1132 HR Resting HR Supine: 92 bpm Max Heart Rate (APMHR): 151.834911 bpm Resting HR Standin bpm Target HR (85% APMHR): 128.118129 bpm Max HR Achieved: 152 bpm % of APMHR: 100.66 Recovery HR: 91 bpm HR response to stress: Normal HR response to stress BP Resting BP Supine: 118/80 mmHg Resting BP Standin/90 mmHg Max BP: 150/90 mmHg Recovery BP: 128/92 mmHg BP response to stress: Normal blood pressure response to stress. ECG Resting ECG: Atrial Fibrillation Ectopy: Occasional PVC Stress ECG: Atrial Fibrillation ST Change: No significant ST segment changes noted Arrhythmia: Occasional PVC Recovery ECG: Atrial Fibrillation Recovery ST Change: No significant ST segment changes noted Recovery Arrhythmia: Occasional afib Clinical Reason for Termination: Target HR Achieved Stress Symptoms: 1-2/10 chest discomfort (unchanged from baseline) Exercise duration: 04 min58 sec Highest Stage Reached: Stage 2: 2.5 mph at 12% grade. Exercise capacity: 7.01 METs Angina Score: Non-Limiting French Treadmill Score: 0.5 Rate Pressure Product: 81417 Stress ECG Conclusion 1. Resting electrocardiogram showed atrial fibrillation but was otherwise normal 2. Patient exercised on the Rachid protocol and completed a workload of 7 METS 3. Normal hemodynamic response to exercise. Peak heart rate was greater than 100% of predicted for a ge 4. Electrocardiographic portion of the test was negative for myocardial ischemia 5. Occasional PVCs were seen 6. See MPI report French Treadmill Score is 0.5 which is Moderate risk. Stress Test Summary STAGE Time (mins) Speed (mph) Grade (%) HR BP SpO2 SYMPTOMS METS Supine 92 118/80 1-04/10 chest discomfort Standing 105 125/90 1 3 1.7 10 135 125/90 94 4.5 2 6 2.5 12 145 7 1 min recovery 126 147/76 96 3 min recovery 96 150/90 6 min recovery 91 140/100 9 min recovery 88 128/92 96 Patient states chest discomfort level was unchanged from -04/10 rating but did become more centralize d in chest. MPI Conclusion Myocardial perfusion is normal. There is no ischemia or evidence of prior infarction Ejection fraction is 55% with normal wall motion Radiologist Interpretation Radiologist Interpretation by: James Redman MD Interpretation Date/Time: 12/29/2022 15:58:00
== END ==
PROVIDERS: PCP Family Medicine; Visit Provider Nurse Practitioner Family
DX: R07.9 Chest pain, unspecified (principal)
CPT/HCPCS: 78452; 93016; 93018; 93017

== ENCOUNTER 2023-04-28 12:22 | Outpatient (REF) | payer MEDICARE, OTHER, SELFPAY ==
[2023-04-28 14:59] LABS: COMMENT (LAB VIEW ONLY) 162.58 mg/dL; Microalb ug/mg Crea 8.2 ug/mg Cr
== END 2023-04-28 12:23 | disposition home or self-care (01) ==
LOC: NCHCN 12:22
PROVIDERS: PCP Family Medicine; Visit Provider Family Medicine
DX: E11.9 Type 2 diabetes mellitus without complications (principal)
CPT/HCPCS: 82043; 82570

== ENCOUNTER → 2023-09-16 09:31 | Outpatient (BNVA) | payer MEDICARE, OTHER, SELFPAY | PROVIDERS: PCP Family Medicine; Visit Provider Internal Medicine Cardiovascular Disease | DX: I48.20 Chronic atrial fibrillation, unspecified (principal); I10 Essential (primary) hypertension | CPT/HCPCS: 99213 ==

== ENCOUNTER 2024-03-30 09:48 | Outpatient (CLI) | payer MEDICARE, OTHER, SELFPAY ==
[2024-03-30 13:11] LABS: HCT 43.9 % (40.0-50.0); HGB 14.3 g/dL (13.5-17.5); MCH 28.9 pg (27.0-33.0); MCHC 32.6 % (32.0-36.0); MCV 89 fL (80-95); MPV 10.9 fL (8.0-11.0); Platelet Count 258 10^3/uL (130-400); RBC 4.94 10^6/uL (4.36-5.78); RDW-SD 42.4 fL; WBC 8.46 10^3/uL (4.4-10.8)
[2024-03-30 13:27] LABS: CREATININE 1.4 mg/dL (0.70-1.30); Calculated LDL 94 mg/dL (<100); Cholesterol 169 mg/dL (<200); Estimated GFR 54.07 (mL/min/1.73m2); HDL Cholesterol 41 mg/dL (40-60); Potassium 4.3 mmol/L (3.5-5.1); Triglyceride 173 mg/dL (<150); Vitamin B12 231 pg/mL (193-986)
[2024-03-30 22:14] LABS: HIV-1/2 Ag & Ab Screen Negative (Negative)
[2024-03-30 22:17] LABS: Hepatitis C Ab w Rflx HCV PCR Negative (Negative)
[2024-03-30 22:20] LABS: HBs Antibody, Quant <3.1 mIU/mL (See Note); Hep B Surface Ab Negative (See Note); Hepatitis B Core Antibody Negative (Negative); Hepatitis B Surface Antigen Negative (Negative)
[2024-04-02 15:32] LABS: Lipoprotein (a) <7 nmol/L (<75)
== END 2024-03-30 09:49 | disposition home or self-care (01) ==
LOC: LOS 09:49
PROVIDERS: PCP Family Medicine; Visit Provider Family Medicine
DX: E78.5 Hyperlipidemia, unspecified (principal); D64.9 Anemia, unspecified; R53.83 Other fatigue; I10 Essential (primary) hypertension; Z11.59 Encounter for screening for other viral diseases; R73.9 Hyperglycemia, unspecified; Z00.00 Encounter for general adult medical examination without abnormal findings
CPT/HCPCS: 36415; 80061; 83695; 85027; 86704; 86706; 86803; 87340; 87389; 82565; 82607; 83036; 84132

== ENCOUNTER 2024-05-10 03:39 | Outpatient (CLI) | payer MEDICARE, OTHER, SELFPAY ==
--- NOTE | 2024-05-10 06:30 | DI.RAD_ITS ---
Exam(s) XR FOOT LT COMPLETE EXAM: XR FOOT LT COMPLETE CLINICAL HISTORY: pain in ankle/foot,M25.572. TECHNIQUE: 2D digital imaging was performed of the left foot. Three images were obtained. AP, obli que and lateral views were obtained. COMPARISON: CR LEFT FOOT COMPLETE from 10/24/2008 FINDINGS: BONES: No acute fracture is present. Mild erosive change seen at the medial aspect of the head of the 1st metatarsal. Mild overlying soft tissue swelling. There is an enthesophyte at the posterior danika caneus. There is a large plantar calcaneal spur. Dystrophic calcifications are seen in the soft tis sues on the plantar surface of the foot. There is a bipartite medial sesamoid at the head of the 1st metatarsal. JOINTS: No dislocation present. There are mild degenerative changes seen in the foot. SOFT TISSUE: Vascular calcifications are present in the soft tissues. IMPRESSION: 1. Small erosion seen in the medial aspect of the head of the 1st metatarsal. Differential considera tions include inflammatory arthritis or infection. Please correlate clinically. 2. Arthrosis of the left foot. 3. Calcaneal spurs. DATA REPOSITORY: RADIATION DOSE DELIVERED:
== END 2024-05-10 03:59 ==
LOC: DI 03:39
PROVIDERS: PCP Family Medicine; Visit Provider Podiatrist
DX: M77.32 Calcaneal spur, left foot (principal); M19.072 Primary osteoarthritis, left ankle and foot; M20.22 Hallux rigidus, left foot; L60.3 Nail dystrophy; M79.671 Pain in right foot; M21.612 Bunion of left foot; T33.831A Superficial frostbite of right toe(s), initial encounter; X31.XXXA Exposure to excessive natural cold, initial encounter; Y93.H1 Activity, digging, shoveling and raking
CPT/HCPCS: 11720; 20600; 73630

== ENCOUNTER → 2024-06-20 13:34 | Outpatient (BNVA) | payer MEDICARE, OTHER, SELFPAY | PROVIDERS: PCP Family Medicine; Referring Provider Family Medicine; Visit Provider Podiatrist | DX: M21.612 Bunion of left foot (principal); M20.22 Hallux rigidus, left foot; M19.072 Primary osteoarthritis, left ankle and foot; L60.3 Nail dystrophy; M79.671 Pain in right foot; T33.821D Superficial frostbite of right foot, subsequent encounter; X58.XXXD Exposure to other specified factors, subsequent encounter | CPT/HCPCS: 99213 ==

== ENCOUNTER 2024-09-12 07:53 | Outpatient (CLI) | payer MEDICARE, OTHER, SELFPAY ==
--- NOTE | 2024-09-12 07:45 | RT.EKG_ITS ---
APPROVED REPORT Exam: Resting ECG Reason for Exam: afib Patient Location: O HR:98 bpm ECG Measurements Heart Rate 98 AXIS WI [id number] P [id number] QRSd 85 QRS -16 QT 333 T 112 QTc 426 Conclusion Atrial fibrillation...V-rate 86-119, irreg A-activity Poor R wave progression
== END 2024-09-12 07:54 | disposition home or self-care (01) ==
LOC: DI.CARD 07:54
PROVIDERS: PCP Family Medicine; Visit Provider Internal Medicine Cardiovascular Disease
DX: I48.20 Chronic atrial fibrillation, unspecified (principal)
CPT/HCPCS: 93010

== ENCOUNTER → 2024-09-12 08:24 | Outpatient (BNVA) | payer MEDICARE, OTHER, SELFPAY | PROVIDERS: PCP Family Medicine; Referring Provider Family Medicine; Visit Provider Podiatrist | DX: M19.072 Primary osteoarthritis, left ankle and foot (principal); M21.612 Bunion of left foot; M20.22 Hallux rigidus, left foot; T33.822A Superficial frostbite of left foot, initial encounter; L60.3 Nail dystrophy; M79.671 Pain in right foot | CPT/HCPCS: J1100; J0702; 20600; 93005; 99214 ==

== ENCOUNTER → 2024-09-12 10:46 | Outpatient (BNVA) | payer MEDICARE, OTHER, SELFPAY | PROVIDERS: PCP Family Medicine; Visit Provider Internal Medicine Cardiovascular Disease | DX: I48.20 Chronic atrial fibrillation, unspecified (principal); I10 Essential (primary) hypertension; Z79.01 Long term (current) use of anticoagulants | CPT/HCPCS: 99214; 93005 ==

== ENCOUNTER 2024-09-20 02:37 | Outpatient (CLI) | payer MEDICARE, OTHER, SELFPAY ==
[2024-09-20 13:06] LABS: Uric Acid 10.4 mg/dL (3.5-7.2)
== END 2024-09-20 02:38 | disposition home or self-care (01) ==
LOC: LOS 02:38
PROVIDERS: PCP Family Medicine; Visit Provider Family Medicine
DX: M10.9 Gout, unspecified (principal)
CPT/HCPCS: 36415; 84550

== ENCOUNTER 2024-10-27 17:39 | Emergency (ER) | payer MEDICARE, OTHER, SELFPAY ==
[2024-10-27 17:40] VITALS: BP 147/74; PULSE 105; RESP 16; TEMP 36.9; O2SAT 94
[2024-10-27 17:54] VITALS: BP 147/74; PULSE 105; RESP 16; TEMP 36.9; O2SAT 94
[2024-10-27 18:05] LABS: Abs Immature Grans 0.09 10^3/uL (0.0-0.06); HCT 42.5 % (40.0-50.0); HGB 14.0 g/dL (13.5-17.5); Immature Grans % 0.5 %; MCH 28.9 pg (27.0-33.0); MCHC 32.9 % (32.0-36.0); MCV 88 fL (80-95); MPV 10.4 fL (8.0-11.0); Platelet Count 285 10^3/uL (130-400); RBC 4.84 10^6/uL (4.36-5.78); RDW 14.4 % (11.8-14.1); RDW-SD 46.2 fL; WBC 17.93 10^3/uL (4.4-10.8)
[2024-10-27] MEDS: ACETAMINOPHEN 1,000 MG/100 ML BAG 400 MG IVPB (18:09)
[2024-10-27 18:22] LABS: ALT 34 U/L (16-63); AST 19 U/L (15-37); Albumin 4.4 g/dL (3.4-5.0); Alkaline Phosphatase 67 U/L (46-116); Anion Gap 11.9 mmol/L (3-11); BUN 34 mg/dL (7-18); Bilirubin, Total 1.0 mg/dL (0.2-1.0); CO2 26.1 mmol/L (21.0-32.0); Calcium 9.7 mg/dL (8.5-10.1); Chloride 99 mmol/L (98-107); Estimated GFR 46.06 (mL/min/1.73m2); Glucose 162 mg/dL (74-106); Lipase 34 U/L (<78); Potassium 4.4 mmol/L (3.5-5.1); Sodium 137 mmol/L (136-145); Total Protein 8.4 g/dL (6.4-8.2)
[2024-10-27] MEDS: Normal Saline - Diluent 50 ML VIAL IJ (18:26)
[2024-10-27] MEDS: Omnipaque 350 MG/ML 100 ML BTL IJ (18:26)
--- NOTE | 2024-10-27 18:35 | W.ED.GENAD ---
Discharge Plan Disposition Patient Disposition: Home Condition: Stable Discharge Details Clinical Impression: Acute diverticulitis Primary Care Provider: Johnathon Rasmussen ED Provider: Gilmar Hernandez Home Meds and New Rx's Prescriptions: New ciprofloxacin HCl 500 mg tablet 500 mg PO BID 10 Days Qty: 20 0RF metronidazole 500 mg tablet 500 mg PO TID 10 Days Qty: 30 0RF Continued lisinopril-hydrochlorothiazide 20-12.5 mg tablet 1 tab PO DAILY Qty: 90 3RF nitroglycerin 0.4 mg tablet, sublingual 0.4 mg sublingual Q5-15M PRN (Reason: chest pain) Qty: 25 3RF Rx Instructions: 1 tablet every 5 minutes x 3 doses if needed for chest pain. Seek emergency services if not improving after first dose mecobalamin (vitamin B12) 1,000 mcg tablet,chewable 1,000 mcg PO DAILY Qty: 90 3RF apixaban 5 mg tablet 5 mg PO BID Qty: 180 3RF metformin 500 mg tablet 500 mg PO BID Qty: 180 3RF clindamycin HCl 300 mg capsule 600 mg PO ONCE PRN (Reason: dental prophylaxis) Qty: 10 1RF Rx Instructions: take 2 tabs one hour prior to dental work allopurinol 100 mg tablet 100 mg PO DAILY Qty: 90 3RF acetaminophen 500 mg capsule 1,000 mg PO Q8H PRN PRNQty: 30 0RF ibuprofen 600 mg tablet 600 mg PO TID Qty: 30 0RF Held simvastatin 10 mg tablet 10 mg PO QPM Qty: 90 3RF Hold Instructions: Resume on 11/06/24. HOLD WHILE ON CIPROFLOXACIN Discharge Instructions Instructions: Ciprofloxacin (Systemic), Metronidazole (Systemic), Diverticulitis Additional Instructions: You were seen in the emergency department for your left lower quadrant abdominal pain, your CT scan shows a noncomplicated diverticulitis without abscess or perforation. This will be treated with 2 different antibiotics called ciprofloxacin and metronidazole. Please return for any continued and worsening abdominal pain especially fever, black or bloody stools, inability to pass stool or gas or any other emergent concerns. Referrals: Johnathon Rasmussen MD [Primary Care Provider, Medicine] Discharge Data Discharge Date/Time-TO BE ENTERED AT DEPARTURE: 10/27/24 20:05 HPI General Date/Time Provider Initiated Documentation: 10/27/24 17:49. HPI Narrative: 68 year-old male presents to ED today by POV/ambulating with a chief complaint of LLQ abdominal pain, seen by PCP at question diverticulitis with onset at 0300 today, has history of diverticulitis. Quality described as aching deep abdominal pain, some diarrhea and vomiting, no radiation to fever, bloody diarrhea, black stools, flank pain, decrease in urine output, chest pain, shortness of breath. Severity is described as moderate. Palliating factors include nothing specific attempted. Provoking factors include nothing specific. Patient is anticoagulated on Eliquis. Related Data Home Medications ?Medication ?Instructions ?Recorded ?Confirmed acetaminophen 500 mg capsule 1,000 mg (2 x 500 mg) PO Q8H PRN 08/13/21 10/27/24 PRN #30 caps ibuprofen 600 mg tablet 600 mg PO TID #30 tabs 08/13/21 10/27/24 nitroglycerin 0.4 mg sublingual 0.4 mg sublingual Q5-15M PRN chest 12/25/22 10/27/24 tablet pain #25 tabs apixaban 5 mg tablet 5 mg PO BID #180 tabs 02/22/24 10/27/24 metformin 500 mg tablet 500 mg PO BID #180 tabs 03/13/24 10/27/24 simvastatin 10 mg tablet 10 mg PO QPM #90 tabs 03/22/24 10/27/24 Held on 10/27/24. Instructions: Resume on 11/06/24. HOLD WHILE ON CIPROFLOXACIN lisinopril 20 1 tab PO DAILY #90 tabs 03/30/24 10/27/24 mg-hydrochlorothiazide 12.5 mg tablet clindamycin HCl 300 mg capsule 600 mg (2 x 300 mg) PO ONCE PRN 04/01/24 10/27/24 dental prophylaxis #10 caps mecobalamin (vitamin B12) 1,000 1,000 mcg PO DAILY #90 tabs 09/19/24 10/27/24 mcg chewable tablet allopurinol 100 mg tablet 100 mg PO DAILY #90 tabs 09/20/24 10/27/24 ciprofloxacin HCl 500 mg tablet 500 mg PO BID 10 days #20 tabs 10/27/24 metronidazole 500 mg tablet 500 mg PO TID 10 days #30 tabs 10/27/24 Previous Rx's ?Medication ?Instructions ?Recorded acetaminophen 500 mg capsule 1,000 mg (2 x 500 mg) PO Q8H PRN 08/13/21 PRN #30 caps ibuprofen 600 mg tablet 600 mg PO TID #30 tabs 08/13/21 nitroglycerin 0.4 mg sublingual 0.4 mg sublingual Q5-15M PRN chest 12/25/22 tablet pain #25 tabs apixaban 5 mg tablet 5 mg PO BID #180 tabs 02/22/24 metformin 500 mg tablet 500 mg PO BID #180 tabs 03/13/24 simvastatin 10 mg tablet 10 mg PO QPM #90 tabs 03/22/24 Held on 10/27/24. Instructions: Resume on 11/06/24. HOLD WHILE ON CIPROFLOXACIN lisinopril 20 1 tab PO DAILY #90 tabs 03/30/24 mg-hydrochlorothiazide 12.5 mg tablet clindamycin HCl 300 mg capsule 600 mg (2 x 300 mg) PO ONCE PRN 04/01/24 dental prophylaxis #10 caps mecobalamin (vitamin B12) 1,000 1,000 mcg PO DAILY #90 tabs 09/19/24 mcg chewable tablet allopurinol 100 mg tablet 100 mg PO DAILY #90 tabs 09/20/24 ciprofloxacin HCl 500 mg tablet 500 mg PO BID 10 days #20 tabs 10/27/24 metronidazole 500 mg tablet 500 mg PO TID 10 days #30 tabs 10/27/24 Allergies Allergy/AdvReac Type Severity Reaction Status Date / Time Penicillins Allergy Intermediate Hives Verified 10/27/24 17:43 General Stated Complaint: Abd Prob MANUEL: 3 Review of Systems All systems reviewed & are unremarkable except as noted in HPI and below Exam Narrative Exam Narrative: GENERAL APPEARANCE: Well-nourished, non-toxic, awake and alert, atraumatic, no acute distress. SKIN: Warm, pink, dry, intact, without rashes/lesions/ulcerations. HEAD: Normocephalic, atraumatic, normal hair distribution for gender/age. EYES: Normal conjunctiva, no exudates on lids/lashes. ENT: Nares patent, no circumoral cyanosis, no facial swelling NECK: Supple, trachea midline, painless cervical ROM. LUNGS/CHEST: Lungs CTA bilaterally- no rhonchi/rales/wheezes diffusely, non-labored respirations, normal A/P diameter, symmetrical expansion, no chest wall deformity HEART (CV/PV): Regular rate and rhythm without murmur, no peripheral edema, no JVD. ABDOMEN: Soft, non-distended, no guarding, LLQ tenderness without peritoneal signs, no CVA tenderness to percussion bilaterally MSK: Normal ROM, no swelling/deformity to bilateral UEs or LEs, moving all extremities without weakness, no cyanosis, spine midline without tenderness, normal curvature. NEURO: Mental Status AAOx4 - alert to person, place, time, events No facial droop, no forehead involvement. Motor: No focal weakness - strength 5/5 in bilateral UEs and LEs, proximal and distal, symmetric. Sensory: sensation intact to light touch globally. Gait normal: patient ambulated without ataxia into ED room. PSYCH: euthymic, cooperative, pleasant, appropriate speech Course Vital Signs Vital signs: Vital Signs Temperature 36.9 C 10/27/24 17:40 Pulse 105 H 10/27/24 17:40 Respiratory Rate 16 10/27/24 17:40 Blood Pressure 147/74 H 10/27/24 17:40 Pulse Oximetry 94 10/27/24 17:40 Temperature 36.9 C 10/27/24 17:54 Temperature Source Tympanic 10/27/24 17:54 Pulse 105 H 10/27/24 17:54 Respiratory Rate 16 10/27/24 17:54 Blood Pressure 147/74 H 10/27/24 17:54 Blood Pressure Position Sitting 10/27/24 17:54 Pulse Oximetry 94 10/27/24 17:54 Oxygen Delivery Method Room Air 10/27/24 17:54 Oxygen Flow Rate 0 10/27/24 17:54 Pain Level 2 10/27/24 17:54 Lab/Test Results Lab/Test Results: Laboratory Tests Range/Units 10/27/24 17:55 WBC (4.4-10.8) 10^3/uL 17.93 H RBC (4.36-5.78) 10^6/uL 4.84 Hgb (13.5-17.5) g/dL 14.0 Hct (40.0-50.0) % 42.5 MCV (80-95) fL 88 MCH (27.0-33.0) pg 28.9 MCHC (32.0-36.0) % 32.9 RDW (11.8-14.1) % 14.4 H Plt Count (130-400) 10^3/uL 285 MPV (8.0-11.0) fL 10.4 Immature Gran % % 0.5 Neutrophils % % 83.9 Lymphocytes % % 7.0 Monocytes % % 8.1 Eosinophils % % 0.3 Basophils % % 0.2 Nucleated RBC % (0.0-0.3) % 0.0 Absolute Neutrophils (1.2-6.7) 10^3/uL 15.04 H Absolute Lymphocytes (1.2-3.4) 10^3/uL 1.26 Absolute Monocytes (0.1-0.8) 10^3/uL 1.45 H Absolute Eosinophils (0.0-0.7) 10^3/uL 0.05 Absolute Basophils (0.0-0.2) 10^3/uL 0.04 VBG Lactate (<or=2.0) mmol/L 1.9 Sodium (136-145) mmol/L 137 Potassium (3.5-5.1) mmol/L 4.4 Chloride (98-107) mmol/L 99 Carbon Dioxide (21.0-32.0) mmol/L 26.1 Anion Gap (3-11) mmol/L 11.9 H BUN (7-18) mg/dL 34 H Creatinine (0.70-1.30) mg/dL 1.6 H Est GFR (CKD-EPI 2020) (mL/min/1.73m2) 46.06 Glucose (74-106) mg/dL 162 H Calcium (8.5-10.1) mg/dL 9.7 Total Bilirubin (0.2-1.0) mg/dL 1.0 AST (15-37) U/L 19 ALT (16-63) U/L 34 Alkaline Phosphatase (46-116) U/L 67 Total Protein (6.4-8.2) g/dL 8.4 H Albumin (3.4-5.0) g/dL 4.4 Lipase (<78) U/L 34 Medical Decision Making This dictation utilizes [id number] dictation software and may contain unedited grammatical errors. 68 year-old male presents to ED today by POV/ambulating with a chief complaint of LLQ abdominal pain, seen by PCP at question diverticulitis with onset at 0300 today, has history of diverticulitis. Quality described as aching deep abdominal pain, some diarrhea and vomiting, no radiation to fever, bloody diarrhea, black stools, flank pain, decrease in urine output, chest pain, shortness of breath. Severity is described as moderate. Palliating factors include nothing specific attempted. Provoking factors include nothing specific. Patients' medical history: IBS, hypertension, hyperlipidemia, diverticulitis, atrial fibrillation, T2DM. Family and social history: Noncontributory. Pertinent exam findings / vital signs include benign cardiopulmonary exam, left lower quadrant abdominal tenderness without peritoneal signs, no CVA tenderness to percussion bilaterally, nontoxic and afebrile. Differential / pathologies of concern include gastroenteritis, colitis, diverticulitis, perforation or abscess. Diagnostic studies of: -CBC, CMP, lactate, lipase, UA, CT ABD/pelvis with contrast - CBC shows leukocytosis of 17.9, nonspecific, no left shift - Lactate negative - CMP without actionable abnormality - Lipase negative - UA without any UTI - CT shows an acute uncomplicated sigmoid diverticulitis without abscess or perforation. Interventions of: -Rx for Cipro and Flagyl as the patient has a penicillin allergy. ED Course/Assessment/Plan: 68-year-old male presents with left lower quadrant abdominal tenderness seen by [facility], suspicious for acute diverticulitis which she has had in the past, CT ruled out microperforation or abscess, plan to treat with Cipro Flagyl, stressed strict return criteria for any worsening abdominal pain especially with fever, complete constipation or other emergent concerns. Findings not consistent with abscess or perforation, sepsis, UTI. Disposition of Acute Diverticulitis. Patient verbalized understanding of the plan and return to ED criteria and engaged in shared decision making. Medical Records Medical records reviewed: Yes I reviewed the patient's medical records. Imaging Data Radiologic Study: Attestation: I personally reviewed and interpreted this imaging study as follows: Imaging: CT Scan Radiologist's impression: Exam: CT Abdomen And Pelvis With Contrast Exam date and time: 10/27/2024 6:26 PM Age: 68 years old Clinical indication: Abdominal pain; Localized; Left lower quadrant (llq); Llq tenderness TECHNIQUE: Imaging protocol: Computed tomography of the abdomen and pelvis with contrast. Radiation optimization: All CT scans at this facility use at least one of these dose optimization techniques: automated exposure control; mA and/or kV adjustment per patient size (includes targeted exams where dose is matched to clinical indication); or iterative reconstruction. Contrast material: [id number]; Contrast volume: 75 ml; Contrast route: INTRAVENOUS (IV); COMPARISON: CR - XR SACROILIAC JOINTS 11/01/2019 10:02 AM FINDINGS: Limitations: The examination is motion limited. Lungs: Lung bases are clear. Liver: The liver has a normal appearance. A circumscribed hypodense focus is present within the liver suggesting the presence of a hepatic cyst which is incompletely characterized. Gallbladder and biliary ducts: The gallbladder is unremarkable. No biliary ductal dilatation. Pancreas: The pancreas demonstrates normal size. No pancreatic ductal dilatation. Spleen: The spleen demonstrates normal size. A small splenule is present adjacent to the spleen. Adrenal glands: The adrenal glands have a normal appearance. Kidneys and ureters: The kidneys are normal in size. There is a low-density left renal cyst. A nonobstructing 3 mm calculus is present at the upper pole of the left kidney. No right nephrolithiasis. No hydronephrosis, hydroureter, or ureterolithiasis. Stomach and bowel: The bowel demonstrates overall normal caliber and wall thickness. There are scattered diverticular outpouchings throughout the colon. Circumferential wall thickening and marked pericolonic fat stranding is present within the midportion of the sigmoid colon. No pneumatosis. Appendix: The appendix is thin walled. Intraperitoneal space: No pneumoperitoneum. Vasculature: There are scattered atheromatous calcifications throughout the aorta and iliac arteries. Lymph nodes: No enlarged lymph nodes. Urinary bladder: The bladder is thin walled and fluid filled. Reproductive: Unremarkable as visualized. Bones/joints: Bones have a normal appearance. No acute fracture or suspicious bone lesion. There is DISH of the visualized thoracic spine. Soft tissues: There is a small fat containing left inguinal hernia. Other findings: No pelvic abscess or fluid collection. IMPRESSION: 1. Acute non perforated sigmoid diverticulitis. 2. Normal appendix. 3. Nonobstructive nephrolithiasis. Dictated and Authenticated by: Ronda Mirza MD. Lab Data Lab results reviewed: Yes I reviewed the patient's lab results. Labs: Laboratory Tests Range/Units 10/27/24 10/27/24 17:55 19:05 WBC (4.4-10.8) 10^3/uL 17.93 H RBC (4.36-5.78) 10^6/uL 4.84 Hgb (13.5-17.5) g/dL 14.0 Hct (40.0-50.0) % 42.5 MCV (80-95) fL 88 MCH (27.0-33.0) pg 28.9 MCHC (32.0-36.0) % 32.9 RDW (11.8-14.1) % 14.4 H Plt Count (130-400) 10^3/uL 285 MPV (8.0-11.0) fL 10.4 Immature Gran % % 0.5 Neutrophils % % 83.9 Lymphocytes % % 7.0 Monocytes % % 8.1 Eosinophils % % 0.3 Basophils % % 0.2 Nucleated RBC % (0.0-0.3) % 0.0 Absolute Neutrophils (1.2-6.7) 10^3/uL 15.04 H Absolute Lymphocytes (1.2-3.4) 10^3/uL 1.26 Absolute Monocytes (0.1-0.8) 10^3/uL 1.45 H Absolute Eosinophils (0.0-0.7) 10^3/uL 0.05 Absolute Basophils (0.0-0.2) 10^3/uL 0.04 VBG Lactate (<or=2.0) mmol/L 1.9 Sodium (136-145) mmol/L 137 Potassium (3.5-5.1) mmol/L 4.4 Chloride (98-107) mmol/L 99 Carbon Dioxide (21.0-32.0) mmol/L 26.1 Anion Gap (3-11) mmol/L 11.9 H BUN (7-18) mg/dL 34 H Creatinine (0.70-1.30) mg/dL 1.6 H Est GFR (CKD-EPI 2020) (mL/min/1.73m2) 46.06 Glucose (74-106) mg/dL 162 H Calcium (8.5-10.1) mg/dL 9.7 Total Bilirubin (0.2-1.0) mg/dL 1.0 AST (15-37) U/L 19 ALT (16-63) U/L 34 Alkaline Phosphatase (46-116) U/L 67 Total Protein (6.4-8.2) g/dL 8.4 H Albumin (3.4-5.0) g/dL 4.4 Lipase (<78) U/L 34 Urine Color (Yellow) Yellow Urine Clarity (Clear) Clear Urine pH (5-8) 5.5 Ur Specific [place] (1.005-1.025) 1.010 Urine Protein (Neg-Trace) mg/dL Negative Urine Ketones (Negative) mg/dL Trace H Urine Blood (Negative) Trace-lysed H Urine Nitrite (Negative) Negative Urine Bilirubin (Negative) Negative Urine Urobilinogen (Up to 0.2) mg/dL 0.2 Ur Leukocyte Esterase (Negative) Negative Urine RBC (0-2) HPF 3-5 H Urine WBC (0-5) HPF 0-2 Ur Epithelial Cells (Negative) HPF Rare Urine Crystals (Negative) HPF Rare Amorphous Urine Bacteria (Negative) HPF Rare Urine Casts (Negative) LPF Negative Urine Mucus (Negative) Negative Ur Culture Indicated? 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 (Acute) Hallux rigidus, left foot (Acute) Metatarsalgia (Acute) Left ankle pain (Acute) Left shoulder strain (Acute) Bunion, left (Acute) Atrial fibrillation (Chronic) New onset a-fib (Acute) Gout (Chronic) Obesity (Chronic) Hypertension (Chronic) Tubular adenoma of colon (Acute 10/20/16) Left sided sciatica (Acute 10/20/16) Kidney stone (Acute) Hyperlipidemia (Acute) Gout (Acute) Generalized osteoarthrosis (Acute) arthritis of index finger; DJD of hands; right knee Essential hypertension (Acute 05/04/13) Carpal tunnel syndrome (Acute) Aseptic loosening of prosthetic knee (Acute) S/P polyethylene exchange Right knee: 01/01/2020 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 02/13/13 LEFT Colonoscopy - IV Sedation (09/17/15) Dr Rangel, tubular adenoma, repeat 5 yrs Extraction of cataract 02/06/14; RIGHT EYE 02/13; LEFT EYE Arthroplasty of knee B/L Family History Father Essential hypertension Heart disease CHF Sister Atrial fibrillation Neoplasm LYMPHOMA Maternal Grandmother No problems noted. Maternal Grandfather No problems noted. Paternal Grandmother No problems noted. Paternal Grandfather No problems noted. Social History Smoking/Tobacco Use Status: Never Second Hand Exposure: Yes Smoking risk assessment performed?: Yes Alcohol Intake: current Alcohol Intake frequency: a few times a month Alcohol type: hard liquor Drug use: Never Substance use type: does not use Counseling given: No Adopted: No Caregiver/Support person: No Household members: spouse Housing: house Number of Children: 2 number of grandchildren: 0 Communication Needs: None Education Level: college Details: Assoc. Degree Do you need help understanding health information?: Rarely current occupation: Retired Pets and animals: Yes Pets and animals: dog(s) Sexually active: No Do you think of yourself as: straight/heterosexual Current gender identity: male What is your relationship status?: How often do you talk on the phone with friends or family?: twice per week How often do you get together with friends or relatives?: decline to answer How often do you attend druze or catholic services?: decline to answer Do you belong to any clubs or organized social groups?: no Panel score (0-1 are the most socially isolated patients): 1 What type of physical activity do you participate in: walking Duration: 60-90 minutes/day Frequency: 5-6 times per week Belén/Shinto: None Special belén needs: No Seatbelt use: always Drive intox or ride w/intox trailer tank truck driver: No Firearms in home: Yes Do you feel safe at home: Yes Do you feel safe in your relationship?: Yes
--- NOTE | 2024-10-27 18:39 | DI.CT_ITS ---
Exam(s) CT ABDOMEN PELVIS W EXAM: CT ABDOMEN PELVIS W CLINICAL HISTORY: LLQ tenderness TECHNIQUE: Imaging Protocol: Axial computed tomography images with coronal and sagittal reformatted images were created and reviewed. CONTRAST MATERIAL: Intravenous: Omnipaque 350 contrast volume:75 mL Oral: No COMPARISON: CT RENAL COLIC WO CONTRAST from 09/30/2010 CT ABD PELVIS WITH CONTRAST from 02/01/2015 FINDINGS: The examination is limited due to patient motion artifact. ABDOMEN: Lung Bases: No acute abnormality. Liver: There is decreased attenuation of the liver suggesting fatty infiltration. There is a cyst again seen in the inferior right lobe of the liver. No suspicious hepatic masses are present. Portal, Superior Mesenteric, and Splenic Veins: Unremarkable. Gallbladder and Biliary Tract: No radiodense calculus or dilation. Pancreas: Normal density, no abnormal calcifications or inflammatory process. Spleen: Normal. Adrenals: No masses seen. Kidneys: Normal size, contour and axis. There is a nonobstructing stone in the superior pole of the left kidney. There are bilateral renal cysts. No follow- up is recommended. Abdominal Aorta: Abdominal portion non-dilated. Atherosclerotic calcification is present. Bowel: There is diverticulosis of the colon. There is a segment of sigmoid colon with thickened beth and pericolonic inflammation consistent with acute diverticulitis. There is no evidence of bowel obstruction. Appendix is unremarkable. Peritoneal Cavity: No ascites, collection or mesenteric inflammatory response. No free air. Lymph Nodes: Within normal limits. Bones: Within normal limits for the patient's age. Soft Tissues: There is a fat containing left inguinal hernia. PELVIS: Bladder: The bladder is incompletely distended limiting evaluation. There is mild thickening of the wall of the urinary bladder. This is likely due to underdistention. Reproductive Organs: Unremarkable as visualized. Lymph Nodes: Within normal limits. Bones: Within normal limits for the patient's age. IMPRESSION: 1. Acute sigmoid diverticulitis. 2. There is no abscess or free air. 3. The preliminary [facility] report was reviewed. RADIATION DOSE DELIVERED: 976.97mGy.cm Total DLP DATA REPOSITORY: All CT scans at this facility are submitted to the National Radiology Data Registry (NRDR) Dose Index Registry (DIR) with the [employer] (A[employer]). RADIATION OPTIMIZATION: All CT scans at this facility use at least one of these dose optimization techniques: automated exposure control; mA and/or kV adjustment per patient size (includes targeted exams where dose is matched to clinical indication); or iterative reconstruction.
[2024-10-27 19:17] LABS: Glucose Negative (Negative)
[2024-10-27 19:21] VITALS: BP 86/64; PULSE 89; RESP 16
[2024-10-27 19:24] LABS: C & S Indicated? No; WBC 0-2 HPF (0-5)
--- NOTE | 2024-10-27 19:26 | DI.VRAD_ITS ---
PROCEDURE INFORMATION: Exam: CT Abdomen And Pelvis With Contrast Exam date and time: 10/27/2024 6:26 PM Age: 68 years old Clinical indication: Abdominal pain; Localized; Left lower quadrant (llq); Llq tenderness TECHNIQUE: Imaging protocol: Computed tomography of the abdomen and pelvis with contrast. Radiation optimization: All CT scans at this facility use at least one of these dose optimization techniques: automated exposure control; mA and/or kV adjustment per patient size (includes targeted exams where dose is matched to clinical indication); or iterative reconstruction. Contrast material: [id number]; Contrast volume: 75 ml; Contrast route: INTRAVENOUS (IV); COMPARISON: CR - XR SACROILIAC JOINTS 11/01/2019 10:02 AM FINDINGS: Limitations: The examination is motion limited. Lungs: Lung bases are clear. Liver: The liver has a normal appearance. A circumscribed hypodense focus is present within the liver suggesting the presence of a hepatic cyst which is incompletely characterized. Gallbladder and biliary ducts: The gallbladder is unremarkable. No biliary ductal dilatation. Pancreas: The pancreas demonstrates normal size. No pancreatic ductal dilatation. Spleen: The spleen demonstrates normal size. A small splenule is present adjacent to the spleen. Adrenal glands: The adrenal glands have a normal appearance. Kidneys and ureters: The kidneys are normal in size. There is a low-density left renal cyst. A nonobstructing 3 mm calculus is present at the upper pole of the left kidney. No right nephrolithiasis. No hydronephrosis, hydroureter, or ureterolithiasis. Stomach and bowel: The bowel demonstrates overall normal caliber and wall thickness. There are scattered diverticular outpouchings throughout the colon. Circumferential wall thickening and marked pericolonic fat stranding is present within the midportion of the sigmoid colon. No pneumatosis. Appendix: The appendix is thin walled. Intraperitoneal space: No pneumoperitoneum. Vasculature: There are scattered atheromatous calcifications throughout the aorta and iliac arteries. Lymph nodes: No enlarged lymph nodes. Urinary bladder: The bladder is thin walled and fluid filled. Reproductive: Unremarkable as visualized. Bones/joints: Bones have a normal appearance. No acute fracture or suspicious bone lesion. There is DISH of the visualized thoracic spine. Soft tissues: There is a small fat containing left inguinal hernia. Other findings: No pelvic abscess or fluid collection. IMPRESSION: 1. Acute non perforated sigmoid diverticulitis. 2. Normal appendix. 3. Nonobstructive nephrolithiasis. Dictated and Authenticated by: Ronda Mirza MD. Orderin Mary Schafer MD
[2024-10-27] MEDS: Ciprofloxacin 500 MG TAB PO (19:56)
[2024-10-27] MEDS: metroNIDAZOLE 500 MG TAB PO (19:56)
== END 2024-10-27 20:05 | disposition home or self-care (01) ==
PROVIDERS: Emergency Provider Physician Assistant; PCP Family Medicine
DX: K57.92 Diverticulitis of intestine, part unspecified, without perforation or abscess without bleeding (principal); R10.32 Left lower quadrant pain; R11.2 Nausea with vomiting, unspecified; Z60.8 Other problems related to social environment
CPT/HCPCS: 36415; 80053; 83690; 96365; 96366; 99285; 74177; 81003; 81015; 83605; 85025; 99284; J0131; J3490